=== PATIENT | male | born 1950 | race Caucasian/White ===

== ENCOUNTER → 2016-06-24 | Outpatient (CLI) | payer OTHER ==
[~2016-06-24] MED LIST: ACET-1311 PO; ASPI81TA28 PO; FINA5TAB PO; HYDR-3419 PO; METO50TA16 PO; POTATAB2 PO; PRLSR20 PO; ROSU20TA PO; TAMS0.4C59 PO; WARF5TAB90 PO
--- NOTE | 2016-06-24 14:11 | DIAGNOSTIC IMAGING REPORT ---
IV PYELOGRAM CLINICAL HISTORY: Benign prostatic hypertrophy with urinary obstruction. COMPARISON STUDY: KUB dated 08/28/2015. Abdominal CT dated 12/11/2014. TECHNIQUE: An abdominal heat treat puller radiograph is performed. IVP pyelogram was then performed following the IV administration of Optiray 300, tomographic images are acquired in the corticomedullary and excretory phases of enhancement. Overhead views of the renal collecting system and bladder were obtained in multiple obliquities both pre and post void. FINDINGS: Abdominal heat treat puller radiograph shows a nonobstructed abdominal bowel gas pattern. There is a left aortic stent graft. Cholecystectomy clips are noted. The reservoir from a penile prosthesis is noted in the left pelvis. There is a 5 mm nonobstructing left renal calculus. No calculi are seen in the right kidney or projecting on the course of the ureters. Pelvic floor motion noted. The skeletal structures are osteopenic. Lumbosacral spondylosis is observed. Following contrast ministration there is symmetric renal cortical enhancement and contrast excretion. No hydronephrosis is seen. There is no evidence of hypervascular renal mass. No filling defects identified within the renal pelvis bilaterally or along the course of the ureters. There is a large indentation along the inferior margin of the bladder, likely corresponding to the markedly enlarged prostate gland seen by CT. The bladder is not well distended during the examination. There is a small post void residual. IMPRESSION: 1. Nonobstructing left renal calculus is noted on the heat treat puller view. 2. The kidneys enhance and excrete symmetrically. There is no hydronephrosis. 3. There is no evidence of urothelial lesion within the renal pelvis bilaterally or along the course of the ureters. 4. The bladder is not well distended. Marked prostatomegaly is noted. 5. There is a post void bladder residual. Electronically signed by: Tristan Valdivia M.D. 06/24/2016 2:10 PM Dictated Date/Time: 06/24/2016 2:06 PM
[2016-06-24 14:30] LABS: BLOOD UREA NITROGEN 18 mg/dl (7-18)
== END | disposition home or self-care (01) ==
LOC: C.RAD 12:33
PROVIDERS: ATTEND Urology
DX: C67.9 Malignant neoplasm of bladder, unspecified (principal); N39.0 Urinary tract infection, site not specified; N40.1 Benign prostatic hyperplasia with lower urinary tract symptoms

== ENCOUNTER → 2016-07-10 | Day surgery (SDC) | payer OTHER ==
[2016-06-30 14:47] VITALS: Ht 172.7 cm; Wt 90.0 kg
--- NOTE | 2016-07-02 14:10 | DIAGNOSTIC IMAGING REPORT ---
CHEST 2 VIEWS ROUTINE CLINICAL HISTORY: N20.0 [id number] preoperative evaluation COMPARISON STUDY: 07/09/2015 FINDINGS: Prior median sternotomy and valve replacement. Lungs are clear. Slight chronic interstitial prominence left base. Diaphragms are smooth. IMPRESSION: Chronic and postoperative change. No acute process. Electronically signed by: Huan East M.D. 07/02/2016 2:09 PM Dictated Date/Time: 07/02/2016 2:08 PM
[2016-07-02 14:39] LABS: BASO % 0.2 %; BASO ABS # 0.01 K/uL (0-0.2); COMPLETE YES; EOS % 3.1 %; HEMATOCRIT 43.2 % (42-52); IG% 0.3 %; LYMPH % 25.6 %; LYMPH ABS # 1.48 K/uL (1.2-3.4); MEAN CORPUSCULAR HEMOGLOBIN 30.4 pg (25-34); MEAN CORPUSCULAR HGB CONC 33.8 g/dl (32-36); NEUT % 61.8 %; PLATELET COUNT 190 K/uL (130-400); WHITE BLOOD COUNT 5.77 K/uL (4.8-10.8)
[2016-07-02 15:09] LABS: POTASSIUM 4.6 mmol/L (3.5-5.1)
[2016-07-02 15:17] LABS: PROSTATE SPECIFIC ANTIGEN 2.17 ng/ml (0.000-4.000)
[~2016-07-10] VITALS: Ht 172.7 cm; Wt 90.0 kg
[~2016-07-10] MED LIST changes: +ATROPINE SULFATE 0.1 MG/ML 5ML SYR IV PRN; +CEFAZOLIN 2000 MG/60 ML D5W IV SCH; +EpHEDrine SULFATE INJ 50 MG/ML AMP IV PRN; +FENTANYL CITRATE INJ 50 MCG/1 ML 2 ML VIAL ONE; +LACTATED RINGER'S 1000ML 1,000 ML IV SCH; +LIDOCAINE HCL 2% 2 ML VIAL (20MG/ML) ONE; +MIDAZOLAM HCL 1 MG/ML 2ML VIAL ONE; +ONDANSETRON INJ 2 MG/ML 2 ML VIAL ONE; -POTATAB2 PO; +PROPOFOL IV EMULSION 10 MG/ML 20 ML VIAL IV ONE
--- NOTE | 2016-07-10 07:31 | DIAGNOSTIC IMAGING REPORT ---
KUB CLINICAL HISTORY: N20.0 [id number] COMPARISON STUDY: 06/24/2016 FINDINGS: A left aortoiliac stent is again visualized. There are surgical clips within the right upper quadrant. There is no pathologic bowel dilatation. There is a 6 mm left renal calculus. There is a presumed reservoir from a penile prosthesis visualized in the left hemipelvis. IMPRESSION: Left-sided nephrolithiasis. No evidence of pathologic bowel dilatation. Electronically signed by: Og Mitchell M.D. 07/10/2016 7:30 AM Dictated Date/Time: 07/10/2016 7:29 AM
[2016-07-10 09:14] LABS: INR 1.1 (0.9-1.1); PROTHROMBIN TIME (PATIENT) 11.9 SECONDS (9.0-12.0)
--- NOTE | 2016-07-10 09:23 | History & Physical Bridge - SC ---
H&P Re-Evaluation Bridge Note: I have examined the patient, reviewed the History & Physical and in the interval since the performance of the History & Physical I have noted the following changes of clinical significance: No changes noted
--- NOTE | 2016-07-10 10:01 | [facility] Post Operative Brief Note ---
Immediate Operative Summary Operative Date Jul 10, 2016. Pre-Operative Diagnosis Left renal stone Post-Operative Diagnosis same Procedure(s) Performed Left Extracorporeal Shock Wave Lithotripsy--RENAL Surgeon Dr Rasheed Patent Paralegal Surgeon(s) 0 Estimated Blood Loss 0 Findings small l lower pole stone Specimens 0 Disposition Recovery Room / PACU
--- NOTE | 2016-07-10 10:03 | Discharge Instructions-SurgCtr ---
Discharge Instructions Visit Reason for Visit: Stones;Nephrolithiasis N20.0 Discharge Discharge Diagnosis / Problem: post op l eswl Discharge Goals Goal(s): Increase independence, Improve disease control Medications Stopped Medications Name(s): Coumadin 5mg last dose 07/05 and asa 81mg patient unsure of last dose, but states that last dose was at least 2 weeks ago Activity Recommendations Activity Limitations: per Instructions/Follow-up section (no driving on narcotics) Anesthesia . Post Anesthesia Instructions: If you have had General Anesthesia or IV Sedation: * Do not drive today. * Resume driving when surgeon permits. * Do not make important decisions or sign legal documents today. * Call surgeon for: 1. Temperature elevations greater than 101 degrees F. 2. Uncontrollable pain. 3. Excessive bleeding. 4. Persistent nausea and vomiting. 5. Medication intolerance (nausea, vomiting or rash). * For nausea and vomiting use only clear liquids such as: tea, soda, bouillon until nausea subsides, then gradually increase diet as tolerated. * If you have any concerns or questions, call your surgeon's office. If physician is unavailable and it is an emergency, call 911 or go to the nearest emergency room. . Diet Recommendations Home Diet: resume previous diet Procedures Procedures Performed: Left Extracorporeal Shock Wave Lithotripsy--RENAL Medical Emergencies . Who to Call and When: Medical Emergencies: If at any time you feel your situation is an emergency, please call 911 immediately. . Non-Emergent Contact Non-Emergency issues call your: Urologist . . "Provider Documentation" section prepared by Lion Rasheed.
[2016-07-10 10:38] VITALS: TEMP 36.5
--- NOTE | 2016-07-10 11:04 | Anesthesia Progress Nt - [facility] ---
Anesthesia Post Op Note Date & Time Jul 10, 2016 at 11:05 Vital Signs Pain Intensity: 0 Vital Signs Past 12 Hours Date Time Temp Pulse Resp B/P Pulse Ox O2 Delivery O2 Flow Rate FiO2 07/10/16 10:38 36.5 92 16 128/76 93 Room Air 07/10/16 10:31 94 20 07/10/16 10:31 93 20 92 07/10/16 10:30 90 23 118/70 92 07/10/16 10:30 90 23 07/10/16 10:25 93 15 07/10/16 10:25 36.6 94 15 115/74 94 Room Air 07/10/16 10:25 94 15 115/74 94 07/10/16 10:20 95 23 114/69 96 07/10/16 10:20 94 23 07/10/16 10:15 94 15 07/10/16 10:15 94 15 95/69 97 07/10/16 10:10 96 21 07/10/16 10:10 95 21 103/67 95 07/10/16 10:05 101 97/70 98 07/10/16 10:05 36.2 99 12 97/70 97 Mask 6 07/10/16 10:05 100 07/10/16 07:59 36.8 110 16 118/71 94 Room Air Notes Mental Status: alert / awake / arousable, participated in evaluation Pt Amnestic to Procedure: Yes Nausea / Vomiting: adequately controlled Pain: adequately controlled Airway Patency, RR, SpO2: stable & adequate BP & HR: stable & adequate Hydration State: stable & adequate Anesthetic Complications: no major complications apparent
[2016-07-10 11:10] VITALS: BP 128/78; PULSE 98; O2SAT 95
--- NOTE | 2016-07-10 14:31 | OPERATIVE REPORT ---
DATE OF OPERATION: 07/10/2016 PREOPERATIVE DIAGNOSIS: Left renal stone. POSTOPERATIVE DIAGNOSIS: Same. PROCEDURE PERFORMED: Left ESWL. INDICATIONS: The patient is a 65-year-old male with previous history of stones, who presents now for ESWL of 5-mm lower pole left renal stone. The patient had been on Coumadin and we checked his protime that was normal. He said that he had been off aspirin for 7 days. He did bleed easily when his blood was drawn from the procedure, so we elected to proceed with the procedure, trying to go at the lowest possible power. DESCRIPTION OF THE PROCEDURE: The patient was taken to the operating room, where general anesthesia was administered. He was placed in supine position. The stone was localized in two views. He was given 2500 shocks, the majority at level 3, the last 500 at level 4. The patient was then transferred to the recovery room in stable condition. I attest to the content of the Intraoperative Record and any orders documented therein. Any exceptio ns are noted below.
== END | disposition home or self-care (01) ==
LOC: X.SURG 06:48
PROVIDERS: ATTEND Urology
DX: N20.0 Calculus of kidney (principal); C67.9 Malignant neoplasm of bladder, unspecified; N40.1 Benign prostatic hyperplasia with lower urinary tract symptoms; N13.8 Other obstructive and reflux uropathy; N39.0 Urinary tract infection, site not specified; I72.3 Aneurysm of iliac artery; I71.2 Thoracic aortic aneurysm, without rupture; I25.10 Atherosclerotic heart disease of native coronary artery without angina pectoris; K21.9 Gastro-esophageal reflux disease without esophagitis; H91.90 Unspecified hearing loss, unspecified ear; E78.5 Hyperlipidemia, unspecified; I47.1 Supraventricular tachycardia

== ENCOUNTER → 2016-07-28 | Outpatient (CLI) | payer OTHER ==
[~2016-07-28] MED LIST changes: -ATROPINE SULFATE 0.1 MG/ML 5ML SYR IV PRN; -CEFAZOLIN 2000 MG/60 ML D5W IV SCH; -EpHEDrine SULFATE INJ 50 MG/ML AMP IV PRN; -FENTANYL CITRATE INJ 50 MCG/1 ML 2 ML VIAL ONE; -LACTATED RINGER'S 1000ML 1,000 ML IV SCH; -LIDOCAINE HCL 2% 2 ML VIAL (20MG/ML) ONE; -MIDAZOLAM HCL 1 MG/ML 2ML VIAL ONE; -ONDANSETRON INJ 2 MG/ML 2 ML VIAL ONE; -PROPOFOL IV EMULSION 10 MG/ML 20 ML VIAL IV ONE
--- NOTE | 2016-07-28 12:52 | DIAGNOSTIC IMAGING REPORT ---
KUB CLINICAL HISTORY: N20.0 Nephrolithiasis COMPARISON STUDY: 07/10/2016 FINDINGS: There is a left iliac stent. There are surgical clips in the right upper quadrant consistent with a prior cholecystectomy. There is a 2 mm calcification projected over the left kidney consistent with a calculus. Pelvic basin calcifications likely represent phleboliths. There is a presumed reservoir from a penile prosthesis visualized in the left hemipelvis. There is no pathologic bowel dilatation. IMPRESSION: 2 mm left renal calculus. Electronically signed by: Og Mitchell M.D. 07/28/2016 12:51 PM Dictated Date/Time: 07/28/2016 12:50 PM
== END | disposition home or self-care (01) ==
LOC: C.RAD 12:18
PROVIDERS: ATTEND Urology
DX: N20.0 Calculus of kidney (principal)

== ENCOUNTER → 2016-10-02 | Outpatient (CLI) | payer OTHER ==
[2016-10-02 13:25] LABS: HEMATOCRIT 44.6 % (42-52); MEAN CELL VOLUME 89.4 fL (80-100); MEAN CORPUSCULAR HEMOGLOBIN 30.1 pg (25-34); MEAN CORPUSCULAR HGB CONC 33.6 g/dl (32-36); MEAN PLATELET VOLUME 10.8 fL (7.4-10.4); PLATELET COUNT 192 K/uL (130-400); RED BLOOD COUNT 4.99 M/uL (4.7-6.1); WHITE BLOOD COUNT 5.94 K/uL (4.8-10.8)
[2016-10-02 13:38] LABS: ALT/SGPT 35 U/L (12-78); AST/SGOT 28 U/L (15-37); BLOOD UREA NITROGEN 20 mg/dl (7-18); BUN/CREATININE RATIO 15.2 (10-20); CALCIUM 8.4 mg/dl (8.5-10.1); CARBON DIOXIDE 25 mmol/L (21-32); CHLORIDE 109 mmol/L (98-107); GLUCOSE 101 mg/dl (70-99); SODIUM 141 mmol/L (136-145)
[2016-10-02 13:42] LABS: CHOLESTEROL 200 mg/dl (0-200); CHOLESTEROL/HDL RATIO 5.3; HDL CHOLESTEROL 38 mg/dl; LDL CHOLESTEROL CALCULATED 127 mg/dl; TRIGLYCERIDES 175 mg/dl (0-150); VERY LOW DENSITY LIPOPROT CALC 35 mg/dl
== END | disposition home or self-care (01) ==
LOC: C.LABMFLN 07:45
PROVIDERS: ATTEND Internal Medicine Cardiovascular Disease
DX: I47.1 Supraventricular tachycardia (principal); E78.5 Hyperlipidemia, unspecified; Q23.1 Congenital insufficiency of aortic valve; I71.2 Thoracic aortic aneurysm, without rupture; I25.10 Atherosclerotic heart disease of native coronary artery without angina pectoris; Z79.01 Long term (current) use of anticoagulants

== ENCOUNTER → 2017-05-14 | Outpatient (CLI) | payer OTHER ==
[~2017-05-14] MED LIST changes: -HYDR-3419 PO
[2017-05-14 12:41] LABS: HEMATOCRIT 45.2 % (42-52); HEMOGLOBIN 15.2 g/dL (14.0-18.0); MEAN CELL VOLUME 91.3 fL (80-100); MEAN CORPUSCULAR HEMOGLOBIN 30.7 pg (25-34); MEAN CORPUSCULAR HGB CONC 33.6 g/dl (32-36); PLATELET COUNT 176 K/uL (130-400); RED CELL DISTRIBUTION WIDTH CV 13.6 % (11.5-14.5); WHITE BLOOD COUNT 5.29 K/uL (4.8-10.8)
[2017-05-14 13:07] LABS: ALT/SGPT 37 U/L (12-78); AST/SGOT 26 U/L (15-37); BLOOD UREA NITROGEN 13 mg/dl (7-18); CALCIUM 8.7 mg/dl (8.5-10.1); CARBON DIOXIDE 24 mmol/L (21-32); CREATININE 1.17 mg/dl (0.60-1.40); GLUCOSE 103 mg/dl (70-99); POTASSIUM 4.2 mmol/L (3.5-5.1); SODIUM 136 mmol/L (136-145)
== END | disposition home or self-care (01) ==
LOC: C.LABMFLN 07:27
PROVIDERS: ATTEND Internal Medicine Cardiovascular Disease
DX: N40.1 Benign prostatic hyperplasia with lower urinary tract symptoms (principal); C67.9 Malignant neoplasm of bladder, unspecified; N39.0 Urinary tract infection, site not specified; N20.0 Calculus of kidney; I47.1 Supraventricular tachycardia; E78.5 Hyperlipidemia, unspecified; I25.10 Atherosclerotic heart disease of native coronary artery without angina pectoris; R42 Dizziness and giddiness; Q23.1 Congenital insufficiency of aortic valve; Z79.01 Long term (current) use of anticoagulants; Z95.2 Presence of prosthetic heart valve

== ENCOUNTER → 2017-09-15 | Outpatient (CLI) | payer OTHER | END | disposition home or self-care (01) | LOC: C.LABMFLN 09:35 | PROVIDERS: ATTEND Urology | DX: N40.1 Benign prostatic hyperplasia with lower urinary tract symptoms (principal) ==

== ENCOUNTER → 2017-09-22 | Outpatient (CLI) | payer OTHER ==
--- NOTE | 2017-09-22 13:34 | DIAGNOSTIC IMAGING REPORT ---
KUB HISTORY: N20.0 [id number] COMPARISON: KUB 07/28/2016, CT urogram 04/26/2014. FINDINGS: The bowel gas pattern is non-obstructive. There is no organomegaly. Unchanged 2 mm calculus of the interpolar left kidney. No ureteral calculi identified. Phleboliths of the pelvis are noted. Surgical sutures overlie the midline of the lower abdomen. Left iliac stent in place. Device about the hemipelvis redemonstrated which suggests a reservoir from penile implant. Cholecystectomy clips noted. No pneumoperitoneum or pneumatosis. No fracture. IMPRESSION: Unchanged 2 mm calculus of the interpolar left kidney. Electronically signed by: Genaro Echols M.D. 09/22/2017 1:33 PM Dictated Date/Time: 09/22/2017 1:26 PM
== END | disposition home or self-care (01) ==
LOC: C.RAD 12:44
PROVIDERS: ATTEND Urology
DX: N40.1 Benign prostatic hyperplasia with lower urinary tract symptoms (principal); N20.0 Calculus of kidney

== ENCOUNTER → 2017-12-01 | Outpatient (CLI) | payer OTHER ==
[2017-12-01 13:09] LABS: HEMOGLOBIN 14.9 g/dL (14.0-18.0); MEAN CELL VOLUME 91.1 fL (80-100); MEAN CORPUSCULAR HEMOGLOBIN 30.2 pg (25-34); MEAN CORPUSCULAR HGB CONC 33.1 g/dl (32-36); MEAN PLATELET VOLUME 10.9 fL (7.4-10.4); PLATELET COUNT 180 K/uL (130-400); RED CELL DISTRIBUTION WIDTH CV 13.9 % (11.5-14.5); RED CELL DISTRIBUTION WIDTH SD 45.9 fL (36.4-46.3)
[2017-12-01 14:06] LABS: ALBUMIN 3.7 gm/dl (3.4-5.0); ALKALINE PHOSPHATASE 48 U/L (45-117); ALT/SGPT 51 U/L (12-78); AST/SGOT 27 U/L (15-37); BLOOD UREA NITROGEN 14 mg/dl (7-18); CALCIUM 8.4 mg/dl (8.5-10.1); CARBON DIOXIDE 24 mmol/L (21-32); CHOLESTEROL 130 mg/dl (0-200); GLUCOSE 114 mg/dl (70-99); LDL CHOLESTEROL CALCULATED 52 mg/dl; POTASSIUM 4.1 mmol/L (3.5-5.1); SODIUM 136 mmol/L (136-145)
== END | disposition home or self-care (01) ==
LOC: C.LABMFLN 07:01
PROVIDERS: ATTEND Physician Assistant
DX: I25.10 Atherosclerotic heart disease of native coronary artery without angina pectoris (principal); E78.5 Hyperlipidemia, unspecified; Z79.01 Long term (current) use of anticoagulants

== ENCOUNTER 2020-01-27 18:18 | Inpatient (IN) ==
--- NOTE | 2020-01-27 22:09 | History & Physical Report ---
Date of Service January 27, 2020 Assessment & Plan (1) Hematuria: 69-year-old male with past medical history of hyperlipidemia, coronary artery disease, mechanical AVR on warfarin, Dementia, transurethral resection of the prostate and resection of bladder tumor on January 01, 2020 presents as a direct admission from [place] for concerns of hematuria. Hematuria -Hemodynamically stable at OSH. Repeat CBC pending -Likely secondary to urothelial friability in setting of recent TURP and resection of bladder tumor procedure 01/01/[address] Machado -Holding Warfarin and ASA -Last seen in Urology office 01/09/20 where catheter was removed. Plan was for another cystoscopy in 4 to 6 weeks and likely BCG therapy with CT Abd/Pelvis in 1-2 weeks -Bladder ultrasound at OSH showed blood clots within the bladder -CBI will be placed here -Appreciate Urology consult Dysuria -UA pending -Will start IV Rocephin BPH -Continue finasteride 5 mg, alfuzosin 10 mg CAD/HLD -Continue metoprolol succinate ER 50 mg daily, Crestor 40 mg daily Dementia -Continue donezepil 10 mg, memantine 10 mg BID FEN/GI: HH Diet DVT Propylaxis: Chemoprophylaxis deferred. SCDs Full Code Dispo: Med Surg Admission and Anticipated Discharge Date Admission Date: January 27, 2020 History of Present Illness Chief Complaint: Hematuria Primary Care Provider: Raine Garcia PA-C 69-year-old male with past medical history of hyperlipidemia, coronary artery disease, mechanical AVR on warfarin, Dementia, transurethral resection of the prostate and resection of bladder tumor on January 01, 2020 presents as a direct admission from [place] for concerns of hematuria. Patient notes that worsening hematuria started this past Wednesday. Initially patient has a clot 'here and there' and usually self resolves. Patient is on Coumadin as noted above. Patient additionally notes that he has had dysuria that started 1 week ago. Per patient, his urologist at [facility] prescribed 1 tablet of antifungal but no other antibiotics (Cx from 01/17/20 grew Linda Albicans). Patient otherwise denies any fevers, chills, sweats, urinary urgency/frequency/hesitancy, other urethral discharge, abdominal pain, chest pain, shortness of breath, known sick contacts or recent travel anywhere. Patient with no other acute concerns or complaints. No pelvic injury. OSH labs: Largely unremarkable CMP and CBC. At OSH, Patient given IV Rocephin and NSS 1 L. [facility] urology was consulted who recommended bladder ultrasound, which showed blood clots within the bladder. Further recommended placing a three-way urinary catheter with continuous bladder irrigation. Social history: Former smoker, quit 1995, 0.5 packs/day with 20-year pack history. Quit smokeless tobacco use (snuff) 4 years ago. Alcohol: Social. No other illicit drug use. Allergies Allergy/AdvReac Type Severity Reaction Status Date / Time adhesive Allergy Mild RED SKIN Verified 01/09/20 09:03 ciprofloxacin Allergy Mild RASH Verified 01/09/20 09:03 doxycycline Allergy Mild GI UPSET Verified 01/09/20 09:03 Home Medications Home Medications Medication Instructions Recorded Confirmed Type cyanocobalamin (vitamin B-12) 1,000 mcg PO DAILY #90 tab 10/12/18 01/09/20 Rx 1,000 mcg tablet warfarin 5 mg tablet 5 mg PO DAILY #90 tab 08/15/19 01/09/20 Rx finasteride 5 mg tablet 5 mg PO DAILY #90 tab 10/25/19 01/09/20 Rx omeprazole 20 mg tablet,delayed 20 mg PO DAILY #90 tab 11/09/19 01/09/20 Rx release aspirin 81 mg PO QPM 12/21/19 01/09/20 History metoprolol succinate 50 mg 25 mg PO DAILY #90 tab 12/22/19 01/09/20 Rx tablet,extended release 24 hr sertraline 25 mg tablet 25 mg PO DAILY #30 tab 12/25/19 01/09/20 Rx alfuzosin [Uroxatral] 10 mg PO QPM 01/01/20 01/09/20 History memantine [Namenda] 10 mg PO BID 01/01/20 01/09/20 History oxycodone-acetaminophen [Percocet] 1 tab PO Q8H PRN #7 tab 01/01/20 01/09/20 Rx rosuvastatin [Crestor] 40 mg PO DAILY 01/01/20 01/09/20 History donepezil 10 mg tablet 10 mg PO DAILY #90 tab 01/09/20 Rx fluconazole 150 mg tablet 150 mg PO ONCE 1 Days #1 tab 01/22/20 Rx Past Med/Surg History Medical History (Updated 01/28/20 @ 13:38 by JASWANT Amaya) 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 MONITORED YEARLY. Aneurysm of thoracic aorta MONITORED YEARLY WITH DR. MOORE Anticoagulant long-term use Arthritis Benign localized hyperplasia of prostate with urinary obstruction Bicuspid aortic valve S/P MECHANICAL AVR 2012. ON COUMADIN. CAD (coronary artery disease) NON-OBSTRUCTIVE Cancer BLADDER CANCER (S/P TB FLUSH TREATMENT) Dementia WITH ASSC. BEHAVIORAL/MOOD CHANGES. FOLLOWING WITH DR REYES [facility] First degree atrioventricular block GERD (gastroesophageal reflux disease) CONTROLLED Hearing deficit Hiatal hernia History of supraventricular tachycardia ASYMPTOMATIC S/P ABLATION (2008) PER CARDIO Hyperlipidemia Hypertension Kidney stones Malignant neoplasm of urinary bladder Mobitz type I Wenckebach atrioventricular block TRANSIENT. Obesity Osteoarthritis Poor historian Supraventricular tachycardia AVNRT, S/P ABLATION, ASYMPTOMATIC. Vitamin B12 deficiency Surgical History (Updated 01/28/20 @ 13:53 by JASWANT Amaya) Fusion of spine LUMBAR FUSION AND DISCECTOMY History of anesthesia reaction CONFUSED/AGITATED AND SLOW TO WAKE UP History of arthroscopy LEFT KNEE History of cardiac cath 2013 History of carpal tunnel release LEFT History of cataract surgery B/L History of cholecystectomy History of colonoscopy History of cystoscopy + KIDNEY STONE EXTRACTION History of esophagogastroduodenoscopy (EGD) History of heart valve replacement AVR (2012) History of herniorrhaphy History of tooth extraction History of vascular surgery S/P LEFT COMMON ILIAC ARTERY ANEURYSM REPAIR Hx of elbow surgery ELBOW SURGERY (ULNAR NERVE) Hx of shoulder surgery LEFT X 2 RT X 1 Hx of transurethral resection of prostate Family History Brother Alcohol abuse Heart disease Crohn's disease Myocardial infarction Sister Anxiety Heart disease Crohn's disease Depression Kidney disease Myocardial infarction Mother Heart disease Myocardial infarction Other Coronary heart disease Denies family history of Ovarian cancer Prostate cancer Breast cancer Colorectal cancer Social History Smoking Status: Never smoker Cigarettes Per Day: QUIT IN 2001; <1 X 20 YEARS; Second Hand Exposure: No; Do You Dip or Chew Tobacco: No; Hx Alcohol Use: Yes Alcohol type: beer Hx Substance Use: No Preferred Language: Ukrainian Communication Ability: Effective Visual Impairment: No Limitations Special Education Case Manager Required: No Beliefs That Will Affect Care: None Current Living Situation: Spouse Other Information That Helps Us Care for You: No Feels Safe at Home: Yes Safety Concerns: Feels Safe At This Time Review of Systems Review of Systems: All systems reviewed & are unremarkable except as noted in HPI & below Physical Exam Constitutional: WD/WN, vitals as above Eyes: PERRL, conjunctivae normal, anicteric sclerae ENMT: external ear and nose normal, oropharynx normal Respiratory: normal respiratory effort, lungs clear to auscultation Cardiovascular: Rate/Rhythm: regular rate and regular rhythm Heart Sounds: + click (h/o AVR) Gastrointestinal (Abdomen): normal bowel sounds, soft, nontender, no hepatosplenomegaly Skin: no rashes, warm and dry Psychiatric: A+Ox3, euthymic affect Genitourinary: Chan in place draining dark red urine Results & Data Results & Data ([facility]) Vital Signs (Past 12 Hours) Vital Signs Temp Pulse Resp BP Pulse Ox 01/27/20 20:30 36.4 C L 52 L 18 142/72 H 97 Code Status & VTE Plan Code Status Full Supervising Physician Co-Signing Physician Notes Attending addendum: I have physically seen this patient, have supervised the medical residents activities, and agree with the H&P unless as otherwise noted. Assessment and Plan: Gross hematuria/status post TURP and bladder tumor resection on 01/01/2020- Hold warfarin and aspirin. Continue CBI Ceftriaxone 1 g IV daily Continue finasteride and alfuzosin Consult urology Dr. Machado CAD/hypertension- Continue Metoprolol succinate ER 50 mg daily Hyperlipidemia- Continue Crestor 40 mg daily. Remainder orders and notations as noted Resident Activity Tracking Resident Involvement: Resident Care Provided Care Provided: Adult Hospital Medicine
[2020-01-27] MEDS ORDERED: ACETAMINOPHEN 325 MG TAB PO PRN (23:02)
[2020-01-27] MEDS ORDERED: ALUMINUM/MAGNESIUM SUSP 30 ML UDC PO PRN (23:02)
[2020-01-27] MEDS ORDERED: ONDANSETRON INJ 2 MG/ML 2 ML VIAL IV PRN (23:02)
[2020-01-27] MEDS: cefTRIAXone SODIUM 2,000 MG in DEXTROSE 5% 50 ML IV SCH (23:57)
[2020-01-28] LABS: Basophils # (auto) 0.01 K/uL (0-0.2); Basophils % (auto) 0.1 %; Eosinophils # (auto) 0.32 K/uL (0-0.5); Eosinophils % (auto) 3.9 %; Hematocrit (blood only) 39.8 % (42-52); Hemoglobin 13.1 g/dL (14.0-18.0); Immature Granulocytes # (auto) 0.01 K/uL (0.00-0.02); Immature Granulocytes % (auto) 0.1 %; Lymphocytes # (auto) 1.54 K/uL (1.2-3.4); Lymphocytes % (auto) 18.6 %; Mean Corpuscular Hemoglobin 30.3 pg (25-34); Mean Corpuscular Hgb Conc 32.9 g/dL (32-36); Mean Corpuscular Volume 91.9 fL (80-100); Mean Platelet Volume 10.7 fL (7.4-10.4); Monocytes # (auto) 0.52 K/uL (0.11-0.59); Monocytes % (auto) 6.3 %; Neutrophils # (auto) 5.87 K/uL (1.4-6.5); Platelet Count 186 K/uL (130-400); RDW Coefficient of Variation 14.1 % (11.5-14.5); RDW Standard Deviation 47.8 fL (36.4-46.3); Red Blood Count 4.33 M/uL (4.7-6.1); White Blood Count 8.27 K/uL (4.8-10.8)
[2020-01-28 00:14] LABS: INR 2.7 (0.9-1.1); Prothrombin Time 27.2 Seconds (9.0-12.0)
[2020-01-28 00:16] LABS: BUN Creatinine Ratio 13.2 (10-20); Calcium 8.6 mg/dl (8.5-10.1); Creatinine Clr Calc Pharmacy 64.6 ml/min; Est GFR (African American) 73.3; Est GFR (Non-African American) 63.2; Potassium 4.3 mmol/L (3.5-5.1)
[2020-01-28] MEDS: MELATONIN 3 MG TAB PO PRN (01:02)
[2020-01-28 05:48] LABS: Basophils % (auto) 0.1 %; Eosinophils % (auto) 5.9 %; Hematocrit (blood only) 38.5 % (42-52); Hemoglobin 12.8 g/dL (14.0-18.0); Immature Granulocytes % (auto) 0.1 %; Lymphocytes % (auto) 18.6 %; Mean Corpuscular Hemoglobin 30.4 pg (25-34); Mean Corpuscular Hgb Conc 33.2 g/dL (32-36); Mean Corpuscular Volume 91.4 fL (80-100); Mean Platelet Volume 11.1 fL (7.4-10.4); Monocytes % (auto) 9.6 %; Neutrophils % (auto) 65.7 %; Platelet Count 175 K/uL (130-400); RDW Coefficient of Variation 14.2 % (11.5-14.5); RDW Standard Deviation 47.8 fL (36.4-46.3); Red Blood Count 4.21 M/uL (4.7-6.1); White Blood Count 7.08 K/uL (4.8-10.8)
[2020-01-28 05:49] LABS: Basophils # (auto) 0.01 K/uL (0-0.2); Eosinophils # (auto) 0.42 K/uL (0-0.5); Immature Granulocytes # (auto) 0.01 K/uL (0.00-0.02); Lymphocytes # (auto) 1.32 K/uL (1.2-3.4); Monocytes # (auto) 0.68 K/uL (0.11-0.59); Neutrophils # (auto) 4.64 K/uL (1.4-6.5)
[2020-01-28 05:57] LABS: INR 2.5 (0.9-1.1); Prothrombin Time 25.3 Seconds (9.0-12.0)
[2020-01-28 06:12] LABS: BUN Creatinine Ratio 16.1 (10-20); Calcium 8.2 mg/dl (8.5-10.1); Creatinine Clr Calc Pharmacy 77.1 ml/min; Est GFR (African American) 90.8; Est GFR (Non-African American) 78.4
[2020-01-28] MEDS: SERTRALINE HCL 50 MG TABLET PO SCH (08:49)
[2020-01-28] MEDS: CYANOCOBALAMIN 500 MCG TABLET (VITAMIN B-12) PO SCH (08:49)
[2020-01-28] MEDS: ROSUVASTATIN CALCIUM 20 MG TAB PO SCH (08:50)
[2020-01-28] MEDS: DONEPEZIL HCL 10 MG TAB PO SCH (08:50)
[2020-01-28] MEDS: FINASTERIDE 5 MG TAB PO SCH (08:50)
[2020-01-28] MEDS: PANTOprazole 40 MG TAB PO SCH (08:50)
[2020-01-28] MEDS: MEMANTINE HCL 10 MG TAB PO SCH ×2 (08:50→20:16)
[2020-01-28] MEDS ORDERED: METOPROLOL SUCC 50MG EXT REL TAB PO SCH (09:00)
--- NOTE | 2020-01-28 11:34 | Urology Consultation ---
Date of Consultation Patient with a January 28, 2020 Assessment & Plan (1) Hematuria: continue cbi at this time -- it's almost off. hopefully this will continue to clear on its own and he can avoid a surgery for cauterization his labs are WNL and he is clinically stable Present on Admission?: Yes (2) S/P TURP (status post transurethral resection of prostate): continue catheter at time time Present on Admission?: Yes (3) Malignant neoplasm of urinary bladder: f/u with primary urologist post dc for managment. Present on Admission?: Yes History of Present Illness Reason for Consultation: Patient transferred from [facility] for gross hematuria. He underwent TURBT and TURP on 12/31. Per the notes, there have mention of possible BCG in the future. He reports that he did well until his ca theter came out. Since then he has had pain and bleeding at times. At one point he was treated for a UTI. He presented yesterday to the [place] [facility]. A 3-way catheter was inserted and he was transferred here when the urine didn't clear. He has been doing well since admission. He denies pain or leakage around the catheter. No CP, SOB, or FC. He denies nausea or vomiting. Attending Physician: Odilon Kunz DO Allergies Allergy/AdvReac Type Severity Reaction Status Date / Time adhesive Allergy Mild RED SKIN Verified 01/09/20 09:03 ciprofloxacin Allergy Mild RASH Verified 01/09/20 09:03 doxycycline Allergy Mild GI UPSET Verified 01/09/20 09:03 Home Medications Home Medications Medication Instructions Recorded Confirmed Type cyanocobalamin (vitamin B-12) 1,000 mcg PO DAILY #90 tab 10/12/18 01/09/20 Rx 1,000 mcg tablet warfarin 5 mg tablet 5 mg PO DAILY #90 tab 08/15/19 01/09/20 Rx finasteride 5 mg tablet 5 mg PO DAILY #90 tab 10/25/19 01/09/20 Rx omeprazole 20 mg tablet,delayed 20 mg PO DAILY #90 tab 11/09/19 01/09/20 Rx release aspirin 81 mg PO QPM 12/21/19 01/09/20 History metoprolol succinate 50 mg 25 mg PO DAILY #90 tab 12/22/19 01/09/20 Rx tablet,extended release 24 hr sertraline 25 mg tablet 25 mg PO DAILY #30 tab 12/25/19 01/09/20 Rx alfuzosin [Uroxatral] 10 mg PO QPM 01/01/20 01/09/20 History memantine [Namenda] 10 mg PO BID 01/01/20 01/09/20 History oxycodone-acetaminophen [Percocet] 1 tab PO Q8H PRN #7 tab 01/01/20 01/09/20 Rx rosuvastatin [Crestor] 40 mg PO DAILY 01/01/20 01/09/20 History donepezil 10 mg tablet 10 mg PO DAILY #90 tab 01/09/20 Rx fluconazole 150 mg tablet 150 mg PO ONCE 1 Days #1 tab 01/22/20 Rx Patient History Medical History (Updated 01/27/20 @ 22:44 by Jacek Thomas DO) 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 MONITORED YEARLY. Aneurysm of thoracic aorta MONITORED YEARLY WITH DR. MOORE Anticoagulant long-term use Arthritis Benign localized hyperplasia of prostate with urinary obstruction Bicuspid aortic valve S/P MECHANICAL AVR 2012. ON COUMADIN. CAD (coronary artery disease) NON-OBSTRUCTIVE Cancer BLADDER CANCER (S/P TB FLUSH TREATMENT) Dementia WITH ASSC. BEHAVIORAL/MOOD CHANGES. FOLLOWING WITH DR REYES, [facility] [place] [facility] First degree atrioventricular block GERD (gastroesophageal reflux disease) CONTROLLED Hearing deficit Hiatal hernia History of supraventricular tachycardia ASYMPTOMATIC S/P ABLATION (2008) PER CARDIO Hyperlipidemia Hypertension Kidney stones Malignant neoplasm of urinary bladder Mobitz type I Wenckebach atrioventricular block TRANSIENT. Obesity Osteoarthritis Poor historian Supraventricular tachycardia AVNRT, S/P ABLATION, ASYMPTOMATIC. Vitamin B12 deficiency Surgical History (Updated 01/09/20 @ 09:45 by Emerita Ortiz RN) Fusion of spine LUMBAR FUSION AND DISCECTOMY History of anesthesia reaction CONFUSED/AGITATED AND SLOW TO WAKE UP History of arthroscopy LEFT KNEE History of cardiac cath 2012 History of carpal tunnel release LEFT History of cataract surgery B/L History of cholecystectomy History of colonoscopy History of cystoscopy + KIDNEY STONE EXTRACTION History of esophagogastroduodenoscopy (EGD) History of heart valve replacement AVR (2012) History of herniorrhaphy History of tooth extraction History of vascular surgery S/P LEFT COMMON ILIAC ARTERY ANEURYSM REPAIR Hx of elbow surgery ELBOW SURGERY (ULNAR NERVE) Hx of shoulder surgery LEFT X 2 RT X 1 Hx of transurethral resection of prostate Family History Brother Alcohol abuse Heart disease Crohn's disease Myocardial infarction Sister Anxiety Heart disease Crohn's disease Depression Kidney disease Myocardial infarction Mother Heart disease Myocardial infarction Other Coronary heart disease Denies family history of Ovarian cancer Prostate cancer Breast cancer Colorectal cancer Social History Smoking Status: Never smoker Cigarettes Per Day: QUIT IN 2001; <1 X 20 YEARS; Second Hand Exposure: No; Do You Dip or Chew Tobacco: No; Hx Alcohol Use: Yes Alcohol type: beer Hx Substance Use: No Preferred Language: Luxembourger Communication Ability: Effective Visual Impairment: No Limitations Airplane Pilot Crop Dusting Required: No Beliefs That Will Affect Care: None Current Living Situation: Spouse Other Information That Helps Us Care for You: No Feels Safe at Home: Yes Safety Concerns: Feels Safe At This Time Review of Systems Review of Systems: All systems reviewed & are unremarkable except as noted in HPI & below Physical Exam Physical Exam: avss aox3 nonlabored breathing soft nt nd abdomen pizano in place - currently clear irrigation on a very slow drip. ext without edema normal affect Results & Data ([facility]) Vital Signs (Past 12 Hours) Vital Signs Temp Pulse Resp BP Pulse Ox 01/28/20 07:28 36.6 C 69 16 123/67 95 PG Care Time/CCT Total # of Minutes Spent Total Time Spent with Patient: Total time spent is greater than 50% in coordination of care (as documented) at patient's floor/unit and/or counseling patient: Coding [place] [address] Initial Inpt Care Lvl 3 Patient Type Established History Expanded Problem Focused Exam Comprehensive Medical Decision Making Moderate Complexity Diagnoses Hematuria R31.9 S/P TURP (status post transurethral resection of prostate) Z90.79 Malignant neoplasm of urinary bladder C67.9 Time Spent (min) 20
--- NOTE | 2020-01-28 13:27 | Hospitalist Progress Note ---
Date of Service January 28, 2020 Assessment & Plan (1) Hematuria: Recent TURP and resection of bladder tumor 12/[address] Machado Last seen in Urology office 01/09/20 where catheter was removed. Plan was for another cystoscopy in 4 to 6 weeks and likely BCG therapy with CT Abd/Pelvis in 1-2 weeks Hold warfarin and ASA for now Urology consulted - continue cbi . (2) S/P TURP (status post transurethral resection of prostate): continue catheter per urology (3) Malignant neoplasm of urinary bladder: f/u with primary urologist post dc for managment. (4) Dysuria: Continue Rocephin, no U/a collected unfortunately before Rocephin started Urine 01/16 grew sharri. (5) CAD in [place] artery: Continue metoprolol succinate ER 50 mg daily, Crestor 40 mg daily (6) Dementia: Continue donezepil 10 mg, memantine 10 mg BID (7) Mechanical heart valve present: Aortic valve replaced for bicuspid valve - hold warfarin for now INR 2.5 Admission and Anticipated Discharge Date Admission Date: January 27, 2020 Subjective Mr. Starr has no complaints. Chan catheter with pink tinged urine ROS Constitutional: no chills, aches, sweats or fever Respiratory: no sob,cough, sputum, or wheezing Cardiac: no chest pain, palpitations, edema, orthopnea or lightheadedness GI: no abdominal pain, nausea, vomiting, diarrhea or constipation : no dysuria or hesitancy Extremities: no joint pain or weakness Skin: no rash All other systems reviewed and negative Physical Exam Physical Exam: General: no distress Eyes: normal inspection, PERLL Respiratory: chest non tender, clear to auscultation, normal breath sounds, no respiratory distress, no accessory muscle use Cardiac: regular rate and rhythm, no rub or gallop, no murmur, no edema, no jvd GI/: active bowel sounds, no abd pain or tenderness, soft, non distended Extremities: normal range of motion, normal strength, non tender Neuro/Psych: alert and oriented x 3, normal mood and affect Skin: normal color, dry Results & Data Results & Data ([facility]) Vital Signs (Past 12 Hours) Vital Signs Temp Pulse Resp BP Pulse Ox 01/28/20 07:28 36.6 C 69 16 123/67 95 PG Care Time/CCT Total # of Minutes Spent Total Time Spent with Patient: Total time spent is greater than 50% in coordination of care (as documented) at patient's floor/unit and/or counseling patient: Coding Level of Care Code 62602 Subseq Hosp Care Lvl 3 Diagnoses Hematuria R31.9 S/P TURP (status post transurethral resection of prostate) Z90.79 Malignant neoplasm of urinary bladder C67.9 Dysuria R30.0 CAD in [place] artery I25.10 Dementia F03.90 Mechanical heart valve present Z95.2
[2020-01-28] MEDS: OXYBUTYNIN CHLORIDE 5 MG TAB PO PRN ×2 (15:36→20:16)
[2020-01-28] MEDS ORDERED: WARFARIN SOD 5 MG TAB PO SCH (16:00)
[2020-01-28] MEDS: ALFUZOSIN HCL 10 MG TAB PO SCH (20:17)
[2020-01-28] MEDS: cefTRIAXone SODIUM 2,000 MG in DEXTROSE 5% 50 ML IV SCH (23:13)
--- NOTE | 2020-01-29 05:09 | Billing Data ---
Date of Service January 29, 2020 Coding Level of Care Code 44972 Initial Inpt Care Lvl 3
[2020-01-29 05:40] LABS: Hematocrit (blood only) 40.8 % (42-52); Hemoglobin 13.7 g/dL (14.0-18.0); Mean Corpuscular Hemoglobin 30.6 pg (25-34); Mean Corpuscular Hgb Conc 33.6 g/dL (32-36); Mean Corpuscular Volume 91.3 fL (80-100); Mean Platelet Volume 10.6 fL (7.4-10.4); Platelet Count 188 K/uL (130-400); RDW Coefficient of Variation 13.8 % (11.5-14.5); Red Blood Count 4.47 M/uL (4.7-6.1); White Blood Count 7.38 K/uL (4.8-10.8)
[2020-01-29 05:45] LABS: INR 1.5 (0.9-1.1); Prothrombin Time 15.6 Seconds (9.0-12.0)
[2020-01-29 06:15] LABS: BUN Creatinine Ratio 12.2 (10-20); Calcium 8.5 mg/dl (8.5-10.1); Creatinine Clr Calc Pharmacy 73.4 ml/min; Est GFR (African American) 85.5; Est GFR (Non-African American) 73.8; Potassium 4.2 mmol/L (3.5-5.1)
--- NOTE | 2020-01-29 09:45 | Hospitalist Progress Note ---
Date of Service January 29, 2020 Assessment & Plan (1) Hematuria: * Recent TURP and resection of bladder tumor 12/[address] Machado * Last seen in Urology office 01/09/20 where catheter was removed. Plan was for another cystoscopy in 4 to 6 weeks and likely BCG therapy with CT Abd/Pelvis in 1-2 weeks * Hold warfarin and ASA for now --> resuming warfarin in AM as INR 1.5 and patient with AVR * Urology consulted -- CBI discontinued at this time * Continue to monitor -- CBC, INR in AM * Changed to full admission (2) Hypertension: * Chronic. 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 Ferrari. ASA on hold as above -- resume when able (5) Anxiety: * with depression/dementia * Continue home sertraline, Namenda (6) Depression: * as above (7) Dementia: * continue Namenda (8) Hyperlipidemia: * Crestor (9) DVT prophylaxis: * Coumadin resumed as above, INR in AM Dispo: likely d/c in AM Admission and Anticipated Discharge Date Admission Date: January 27, 2020 Subjective Patient evaluated this morning and afternoon. Initially irritated this morning and stated he had been waiting over five hours for an xray. Discussed that no xray was ordered. CBI still occurring up until around 3pm this afternoon. Pizano with clear/light yellow drainage. Decreased burning noted. Plans for discharge in am with or without pizano and follow up with Urology. Eating/drinking without difficulty. Moved his bowels this morning. Denies fever, chill, chest pain, shortness of breath, abdominal pain, nausea, vomiting, constipation at this time. This evening, patient agreeable to stay as we will be resuming his coumadin and to monitor for any further bleeding. 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 Review of Systems Review of Systems: All systems reviewed & are unremarkable except as noted in HPI & below Physical Exam Constitutional: WD/WN, vitals as above Eyes: PERRL, conjunctivae normal, anicteric sclerae ENMT: external ear and nose normal, oropharynx normal Respiratory: normal respiratory effort, lungs clear to auscultation Cardiovascular: Rate/Rhythm: regular rate and regular rhythm Heart Sounds: + click (h/o AVR) Vessels: no JVD Extremities: no calf tenderness and no edema Gastrointestinal (Abdomen): normal bowel sounds, soft, nontender, no hepatosplenomegaly Musculoskeletal: no cyanosis or clubbing, extremities motor strength 5/5 Skin: no rashes, warm and dry Psychiatric: Orientation: alert and oriented x 3 Genitourinary: Pizano in place draining clear/light yellow urine Results & Data Results & Data ([facility]) Vital Signs (Past 12 Hours) Vital Signs Temp Pulse Resp BP Pulse Ox 01/29/20 07:07 36.7 C 83 16 100/66 93 01/28/20 23:31 36.6 C 68 19 111/52 L 91 Laboratory Results 01/29/20 01/29/20 01/29/20 Range/Units 05:21 05:21 05:21 WBC 7.38 (4.8-10.8) K/uL RBC 4.47 L (4.7-6.1) M/uL Hgb 13.7 L (14.0-18.0) g/dL Hct 40.8 L (42-52) % MCV 91.3 (80-100) fL MCH 30.6 (25-34) pg MCHC 33.6 (32-36) g/dL RDW Std Deviation 46.0 (36.4-46.3) fL RDW Coeff of David 13.8 (11.5-14.5) % Plt Count 188 (130-400) K/uL MPV 10.6 H (7.4-10.4) fL PT 15.6 H (9.0-12.0) Seconds INR 1.5 H (0.9-1.1) Sodium 140 (136-145) mmol/L Potassium 4.2 (3.5-5.1) mmol/L Chloride 106 (98-107) mmol/L Carbon Dioxide 26 (21-32) mmol/L Anion Gap 8.0 (3-11) BUN 13 (7-18) mg/dl Creatinine 1.03 (0.6-1.4) mg/dl Est Cr Clr Drug Dosing 73.4 ml/min Est GFR ( Amer) 85.5 Est GFR (Non-Af Amer) 73.8 BUN/Creatinine Ratio 12.2 (10-20) Glucose 109 H (70-99) mg/dl Calcium 8.5 (8.5-10.1) mg/dl PG Care Time/CCT Total # of Minutes Spent Total Time Spent with Patient: Total time spent is greater than 50% in coordination of care (as documented) at patient's floor/unit and/or counseling patient: Coding Level of Care Code 26602 Subseq Hosp Care Lvl 2 Diagnoses Hematuria R31.9 Hypertension I10 Bicuspid aortic valve Q23.1 Aneurysm of iliac artery I72.3 Anxiety F41.9 Depression F32.9 Dementia F03.90 Hyperlipidemia E78.5 DVT prophylaxis Z29.9
[2020-01-29] MEDS: SERTRALINE HCL 50 MG TABLET PO SCH (09:48)
[2020-01-29] MEDS: PANTOprazole 40 MG TAB PO SCH (09:49)
[2020-01-29] MEDS: CYANOCOBALAMIN 500 MCG TABLET (VITAMIN B-12) PO SCH (09:49)
[2020-01-29] MEDS: ROSUVASTATIN CALCIUM 20 MG TAB PO SCH (09:49)
[2020-01-29] MEDS: MEMANTINE HCL 10 MG TAB PO SCH ×2 (09:49→20:00)
[2020-01-29] MEDS: DONEPEZIL HCL 10 MG TAB PO SCH (09:50)
[2020-01-29] MEDS: FINASTERIDE 5 MG TAB PO SCH (09:50)
[2020-01-29] MEDS: METOPROLOL SUCC 25MG EXT REL TAB PO SCH (09:53)
--- NOTE | 2020-01-29 14:08 | Urology Progress Note ---
Date of Service January 29, 2020 Assessment & Plan (1) Malignant neoplasm of urinary bladder: Patient is tolerating catheter without problems or issues. Has been draining well with CBI now off. Clear yellow urine without problems or clots. Patient overall doing well. He is ambulating. Is going to be started on a diet with hydration and close monitoring. Plan will be to continue to monitor. Likely can go home with catheter in place. Did discuss different options if patient continues to have issues. For now patient is doing well and will continue to monitor Admission and Anticipated Discharge Date Admission Date: January 27, 2020 Subjective Patient admitted with gross hematuria as well as discomfort with catheter in place draining clear urine without clots or red tinge after finishing CBI. Patient is afebrile. Has been supported with oral medications, IV medications, IV fluids, and oral intake. Is doing better without considerable increase in pain or major issues. Has not developed severe vomiting or other issues. Has not experienced fever or chills. Has been tolerating oral medications. Is tolerating fluids. Has noticed some frequency and urgency. Has not had severe pain in the back and flank. Does have occasional burning and irritation. No severe episodes or major changes. Urine has now completely cleared Review of Systems Review of Systems: All systems reviewed & are unremarkable except as noted in HPI & below Physical Exam Physical Exam: General: Alert in no acute distress. HEENT: Normocephalic Atraumatic. Inspection normal. Cranial Nerves 2-12 G rossly intact. Normal inspection of face. Normal inspection of neck. Psychologic: Normal affect. Respiratory: Nonlabored. No use of accessory muscles. No tachypnea or dyspnea. Cardiovascular: No tachycardia Skin: [place] and Dry. No rashes or visible lesions. Extremities/Lymphatics: No edema Abdomen: Soft Non-distended. No rebound or guarding. Results & Data ([facility]) Vital Signs (Past 12 Hours) Vital Signs Temp Pulse Resp BP Pulse Ox 01/29/20 09:46 83 121/69 01/29/20 07:07 36.7 C 83 16 100/66 93 PG Care Time/CCT Total # of Minutes Spent Total Time Spent with Patient: Total time spent is greater than 50% in coordination of care (as documented) at patient's floor/unit and/or counseling patient: Coding Level of Care Code 64611 Subseq Hosp Care Lvl 3 Diagnoses Malignant neoplasm of urinary bladder C67.9
[2020-01-29 15:16] VITALS: O2SAT 95
[2020-01-29] MEDS ORDERED: WARFARIN SOD 7.5 MG TAB PO SCH (16:00)
[2020-01-29 16:14] LABS: Appearance Urine Cloudy (Clear); Bacteria Urine Automated Negative (Negative); Bilirubin Urine Negative (Negative); Blood Urine 3+ (Negative); Color Urine Yellow; Epithelial Cell Urine Auto 0-5 /lpf (0-5); Glucose Urine UA Negative (Negative); Ketones Urine Negative (Negative); Leukocyte Esterase Urine 2+ (Negative); Nitrite Urine Negative (Negative); Protein Urine 2+ (Negative); Specific Gravity Urine 1.023 (1.000-1.030); Urobilinogen Urine Negative (Negative); WBC Urine Automated >30 /hpf (0-5)
[2020-01-29] MEDS: ALFUZOSIN HCL 10 MG TAB PO SCH (20:00)
[2020-01-29] MEDS: MELATONIN 3 MG TAB PO PRN (22:51)
[2020-01-30] MEDS: cefTRIAXone SODIUM 2,000 MG in DEXTROSE 5% 50 ML IV SCH (00:06)
[2020-01-30 05:56] LABS: Hematocrit (blood only) 39.4 % (42-52); Hemoglobin 13.1 g/dL (14.0-18.0); Mean Corpuscular Hemoglobin 30.2 pg (25-34); Mean Corpuscular Hgb Conc 33.2 g/dL (32-36); Mean Corpuscular Volume 90.8 fL (80-100); Mean Platelet Volume 10.8 fL (7.4-10.4); Platelet Count 193 K/uL (130-400); RDW Coefficient of Variation 13.6 % (11.5-14.5); RDW Standard Deviation 45.8 fL (36.4-46.3); Red Blood Count 4.34 M/uL (4.7-6.1); White Blood Count 7.27 K/uL (4.8-10.8)
[2020-01-30 06:09] LABS: INR 1.3 (0.9-1.1); Prothrombin Time 13.6 Seconds (9.0-12.0)
[2020-01-30 06:20] LABS: BUN Creatinine Ratio 14.5 (10-20); Calcium 8.5 mg/dl (8.5-10.1); Est GFR (African American) 83.5; Est GFR (Non-African American) 72.1; Potassium 3.7 mmol/L (3.5-5.1)
[2020-01-30 07:21] VITALS: BP 137/72; PULSE 73; TEMP 98.1
[2020-01-30] MEDS: CYANOCOBALAMIN 500 MCG TABLET (VITAMIN B-12) PO SCH (08:32)
[2020-01-30] MEDS: DONEPEZIL HCL 10 MG TAB PO SCH (08:32)
[2020-01-30] MEDS: FINASTERIDE 5 MG TAB PO SCH (08:32)
[2020-01-30] MEDS: METOPROLOL SUCC 25MG EXT REL TAB PO SCH (08:32)
[2020-01-30] MEDS: PANTOprazole 40 MG TAB PO SCH (08:32)
[2020-01-30] MEDS: SERTRALINE HCL 50 MG TABLET PO SCH (08:32)
[2020-01-30] MEDS: MEMANTINE HCL 10 MG TAB PO SCH (08:33)
[2020-01-30] MEDS: ROSUVASTATIN CALCIUM 20 MG TAB PO SCH (08:33)
[2020-01-30] MEDS ORDERED: ASPIRIN 81 MG ECTAB PO SCH (09:00)
--- NOTE | 2020-01-30 09:18 | Discharge Summary ---
Date of Service January 30, 2020 Admission HPI Per Admitting Provider 69-year-old male with past medical history of hyperlipidemia, coronary artery disease, mechanical AVR on warfarin, Dementia, transurethral resection of the prostate and resection of bladder tumor on January 01, 2020 presents as a direct admission from [address] for concerns of hematuria. Patient notes that worsening hematuria started this past Wednesday. Initially patient has a clot 'here and there' and usually self resolves. Patient is on Coumadin as noted above. Patient additionally notes that he has had dysuria that started 1 week ago. Per patient, his urologist at [facility] prescribed 1 tablet of an tifungal but no other antibiotics (Cx from 01/17/20 grew Linda Albicans). Patient otherwise denies any fevers, chills, sweats, urinary urgency/frequency/hesitancy, other urethral discharge, abdominal pain, chest pain, shortness of breath, known sick contacts or recent travel anywhere. Patient with no other acute concerns or complaints. No pelvic injury. OSH labs: Largely unremarkable CMP and CBC. At OSH, Patient given IV Rocephin and NSS 1 L. [facility] urology was consulted who recommended bladder ultrasound, which showed blood clots within the bladder. Further recommended placing a three-way urinary catheter with continuous bladder irrigation. Social history: Former smoker, quit 1995, 0.5 packs/day with 20-year pack history. Quit smokeless tobacco use (snuff) 4 years ago. Alcohol: Social. No other illicit drug use. Admission Exam Per Admitting Provider Constitutional: WD/WN, vitals as above Eyes: PERRL, conjunctivae normal, anicteric sclerae ENMT: external ear and nose normal, oropharynx normal Respiratory: normal respiratory effort, lungs clear to auscultation Cardiovascular: Rate/Rhythm: regular rate and regular rhythm Heart Sounds: + click (h/o AVR) Gastrointestinal (Abdomen): normal bowel sounds, soft, nontender, no hepatosplenomegaly Skin: no rashes, warm and dry Psychiatric: A+Ox3, euthymic affect Genitourinary: Pizano in place draining dark red urine Principal Diagnosis Hematuria Discharge Exam Constitutional WD/WN, vitals as above no acute distress Eyes + anicteric sclerae and PERRL ENMT mmm Neck normal visual inspection Respiratory normal respiratory effort, lungs clear to auscultation Cardiovascular Rate/Rhythm: regular rate and regular rhythm Heart Sounds: + murmur (click) Extremities: normal capillary refill; no calf tenderness and no edema Gastrointestinal (Abdomen) normal bowel sounds, soft, nontender, no hepatosplenomegaly Musculoskeletal no cyanosis or clubbing, extremities motor strength 5/5 Skin warm, dry Neurologic PERRL, EOMI, accommodation nl, no face palsy, no dysarthria Psychiatric Orientation: alert and oriented x 3 Genitourinary pizano with concentrated urine Lymphatic no cervical or axillary lymphadenopathy Discharge Data Allergies Allergy/AdvReac Type Severity Reaction Status Date / Time adhesive Allergy Mild RED SKIN Verified 01/09/20 09:03 ciprofloxacin Allergy Mild RASH Verified 01/09/20 09:03 doxycycline Allergy Mild GI UPSET Verified 01/09/20 09:03 Consultations 01/27/20 23:07 Consult Urology Routine Hospital Course (1) Hematuria: * Recent TURP and resection of bladder tumor 12/[address] Machado. Last seen in Urology office 01/09/20 where catheter was removed. Plan was for another cystoscopy in 4 to 6 weeks and likely BCG therapy with CT Abd/Pelvis in 1-2 weeks * Warfarin and ASA held on admission in setting of hematuria. H/h stabilized and medications resumed following successful continuous bladder irrigation as ordered by Urology. * Patient to have repeat labs in 2 days given subtherapeutic INR at 1.3 and has AVR * Had been on Ceftriaxone IV empirically and transitioned to Augmentin to complete course 14 days for likely pyelo as UA not collected prior to abx initiation. Repeat Cx no growth. Previous E.coli pansensitive * Discharged with pizano catheter and to have follow up with urology in 2-3 weeks for voiding trial and repeat cysto (2) Hypertension: * Chronic. * Per review of outpatient notes, patient recently had metoprolol decreased to 25mg daily and had gotten 50mg on admission but changed to 25mg on 01/28 * BP stable 137/72 prior to discharge (3) Bicuspid aortic valve: * Noted * Resuming Coumadin as above on 01/28, INR 1.3. 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 Ferrari. ASA hold as above -- resumed (5) Anxiety: * with depression/dementia * Continued home sertraline, Namenda (6) Depression: * as above (7) Dementia: * continued Namenda (8) Hyperlipidemia: * Continued Crestor (9) DVT prophylaxis: * Coumadin resumed as above Discharged home with family with Pizano catheter in place Sent with rx for Augmentin Follow up with PCP, Urology Total Time Total Time Spent Total Time Spent (In Minutes): 60 Discharge Plan Discharge Items Patient Disposition: Home - Self-Care Reason For Visit: HEMATURIA Discharge Diagnosis: Hematuria Goals: You have been hospitalized for an acute medical problem. During your stay at [facility], we have made an effort to correct the problem that brought you to the hospital while keeping you as comfortable as possible. Medications were used to bring your condition under control and your discharge instructions will include directions for any medications you should take after leaving the hospital. Please make sure you see your Primary Care Provider as part of your follow up plan. Activity: Resume your previous activity Non-emergency contact: Primary Care Provider and Urologist Call non-emergency contact if: you have any medication questions, your symptoms worsen, your pain is concerning for you and you have a fever Follow-up/Referrals: Raine Garcia PA-C [Primary Care Provider] - 02/05/20 1:30 pm Oli Machado DO [Physician] - 02/13/20 1:40 pm Diet: Heart Healthy Ambulatory Orders: Basic Metabolic Panel (Routine) Timeframe: 2 Days Location: Determined by Patient Ordered By: Kristy Hoffmann Complete Blood Count no Diff (Timed) Timeframe: 2 Days Location: Determined by Patient Ordered By: Kristy Hoffmann Prothrombin Time INR (Timed) Timeframe: 2 Days Location: Determined by Patient Ordered By: Kristy Hoffmann Addtl Attending Provider Instructions: You have been hospitalized for hematuria. Urology was consulted and your underwent bladder irrigation with improvement of this bleeding. Blood counts have remained stable and your Coumadin was resumed. You have been provided lab slips to have your INR re-checked in the next 1-2 days, as it was resumed and your INR was only 1.3 this morning. You will also be provided slip to repeat your blood counts and kidney function at the same time. You have also been given IV antibiotics prior to sending a urine culture down and based on infected appeared urine, you will continue with oral antibiotics to complete course of total 14 days as follows: * Augmentin 875mg by mouth TWICE daily for additional 11 days You are being sent home with pizano catheter per Urology and will need follow up with their office in the next 2-3 week for follow up cystoscopy and pizano removal. An appointment has already been made for you. If you have any questions/concerns prior to this appointment regarding your pizano, please call their office at . Please return to the emergency department if you have any worsening bleeding, fever, pain, or for any other symptoms that are concerning for you. It has been a pleasure being a part of the medical team providing for you while you have been in the hospital. Take care! Pending Studies at Discharge: Yes Studies:: Urine Culture Stand-Alone Forms: My [facility] AFINOS, Smoking Cessation Medications and DC Order Prescriptions: New amoxicillin-pot clavulanate [Augmentin] 875-125 mg tablet 1 tab PO BID 11 Days Qty: 22 RF: 0 oxybutynin chloride 5 mg Tablet 5 mg PO BID PRN (Reason: bladder spasms) Qty: 4 RF: 0 Continued warfarin 5 mg tablet 5 mg PO DAILY Qty: 90 RF: 3 finasteride [Proscar] 5 mg tablet 5 mg PO DAILY Qty: 90 RF: 1 omeprazole 20 mg tablet,delayed release (DR/EC) 20 mg PO DAILY Qty: 90 RF: 1 sertraline 25 mg tablet 25 mg PO DAILY Qty: 30 RF: 2 donepezil [Aricept] 10 mg tablet 10 mg PO DAILY Qty: 90 RF: 1 metoprolol succinate 50 mg tablet extended release 24 hr 25 mg PO DAILY Qty: 90 RF: 1 cyanocobalamin (vitamin B-12) 1,000 mcg tablet 1,000 mcg PO DAILY Qty: 90 RF: 3 aspirin 81 mg tablet,delayed release (DR/EC) 81 mg PO QPM RF: 0 rosuvastatin [Crestor] 40 mg tablet 40 mg PO DAILY RF: 0 alfuzosin [Uroxatral] 10 mg tablet extended release 24 hr 10 mg PO QPM RF: 0 memantine [Namenda] 10 mg tablet 10 mg PO BID RF: 0 oxycodone-acetaminophen [Percocet] 7.5-325 mg tablet 1 tab PO Q8H PRN (Reason: pain) Qty: 7 RF: 0 Discontinued fluconazole 150 mg tablet 150 mg PO ONCE 1 Days Qty: 1 RF: 0 Discharge Orders: Discharge Order (Routine); Ordered 01/30/20 Ordered By: Kristy Stewart/Other Patient Handouts: What is Hematuria?, Hematuria: Possible Causes, Emptying and Cleaning Your ..., Indwelling Urinary Catheter Dc, Discharge Instructions Caring for ... Admission Data Admit Date/Time: 01/29/20 16:55 Attending Provider: Ze Zambrano Admit Provider: Amaury Mayo Primary Care Provider: Raine Garcia Other Providers: Allyssa Dixon Other Interventions: Discharge Summary Assessment (RN) Last Done: 01/30/20 10:31 Coding Level of Care Code D/C Day Management >30 mins Diagnoses Hematuria R31.9 Hypertension I10 Bicuspid aortic valve Q23.1 Aneurysm of iliac artery I72.3 Anxiety F41.9 Depression F32.9 Dementia F03.90 Hyperlipidemia E78.5 DVT prophylaxis Z29.9
--- NOTE | 2020-01-30 10:17 | Urology Progress Note ---
Date of Service January 30, 2020 Assessment & Plan (1) Malignant neoplasm of urinary bladder: Hematuria has resolved Leave catheter in place Okay for discharge home from a standpointoutpatient follow-up for voiding trial Admission and Anticipated Discharge Date Admission Date: January 29, 2020 Subjective Feels well Urine remains clear overnight No manual irrigation required Anxious to go home Review of Systems Review of Systems: All systems reviewed & are unremarkable except as noted in HPI & below Physical Exam Physical Exam: Urine clear throughout the tubing and bagno clots Constitutional: well developed and well nourished Respiratory: no respiratory distress Cardiovascular: Extremities: no pedal edema Gastrointestinal (Abdomen): Inspection/Auscultation: abdomen normal to inspection Results & Data ([facility]) Vital Signs (Past 12 Hours) Vital Signs Temp Pulse Resp BP Pulse Ox 01/30/20 07:19 36.7 C 73 16 137/72 95 01/29/20 23:16 36.8 C 65 17 93/58 L 95 PG Care Time/CCT Total # of Minutes Spent Total Time Spent with Patient: Total time spent is greater than 50% in coordination of care (as documented) at patient's floor/unit and/or counseling patient: Coding Level of Care Code 08784 Subseq Hosp Care Lvl 2 Diagnoses Malignant neoplasm of urinary bladder C67.9
== END 2020-01-30 13:37 | disposition home or self-care (01) | DRG 688 ==
LOC: 3W 20:47 → SUATTDRO 20:47 → INTOOBSV 20:47

== ENCOUNTER 2020-03-11 10:50 | Observation (INO) ==
--- NOTE | 2020-02-23 14:20 | PAT Medication Instructions ---
Medication Instructions Date of Service February 23, 2020 Home Medications Medication Instructions Recorded warfarin 5 mg tablet 5 mg PO DAILY #90 tab 08/15/19 warfarin 5 mg tablet 5 mg PO DAILY aspirin 81 mg PO QPM alfuzosin [Uroxatral] 10 mg PO QPM memantine [Namenda] 10 mg PO BID rosuvastatin [Crestor] 40 mg PO QPM cyanocobalamin (vitamin B-12) 1,000 mcg PO QPM donepezil [Aricept] 10 mg PO QPM finasteride [Proscar] 5 mg PO QPM metoprolol succinate 50 mg PO QPM omeprazole 20 mg PO QAM sertraline 25 mg PO QPM ASK your prescriber and surgeon warfarin 5 mg tablet 5 mg PO DAILY aspirin 81 mg PO QPM Take morning of surgery With a small sip of water, OTHERWISE NOTHING TO EAT OR DRINK AFTER MIDNIGHT: memantine [Namenda] 10 mg PO BID omeprazole 20 mg PO QAM Take evening before surgery alfuzosin [Uroxatral] 10 mg PO QPM memantine [Namenda] 10 mg PO BID rosuvastatin [Crestor] 40 mg PO QPM cyanocobalamin (vitamin B-12) 1,000 mcg PO QPM donepezil [Aricept] 10 mg PO QPM finasteride [Proscar] 5 mg PO QPM metoprolol succinate 50 mg PO QPM sertraline 25 mg PO QPM Other Notes If you have any questions please call us at [phone] or [phone] or [phone] or [phone]
--- NOTE | 2020-02-27 10:41 | Anesthesiology Consultation ---
Date of Service February 27, 2020 Assessment & Plan (1) Encounter for pre-operative examination: COVID Status: As of 02/26 assessment, patient denies travel to endemic area, known exposure/sick contacts, or symptoms of COVID19. Patient instructed that they and their household members must follow strict social distancing guidelines, wear a mask in public and avoid travel for 14 days prior to surgery. Preoperative COVID19 testing to be completed prior to surgery per surgeon's ar rangements. Patient made aware to self-isolate as much as possible between COVID testing and surgery. Patient evaluated preoperatively by cardiology on 12/21 for TURBT done 12/31 @ [facility]. Procedure done with MAC, well-tolerated. Clinical status has remained stable since then aside from bladder/prostate issues, as reported by pt and his . Chart Review Chart Review: Acceptable Risk for Surgery and Patient seen in Pre Admission Testing Teaching & Discussion Instructed NPO after midnight before surgery, except medications with 15 cc of water. Medication instructions provided according to the PAT guidelines. History Surgery Operation Date: 03/11/20 07:15 Proposed Procedures p Transurethral Resection Prostate - Oli Machado DO Height/Weight Height: 5 ft 6 in Weight: 87.9 kg Allergies Allergy/AdvReac Type Severity Reaction Status Date / Time adhesive Allergy Mild RED SKIN Verified 02/23/20 11:42 ciprofloxacin Allergy Mild RASH Verified 02/23/20 11:42 doxycycline Allergy Mild GI UPSET Verified 02/23/20 11:42 Medications Home Medications Medication Instructions Recorded Confirmed Last Taken warfarin 5 mg tablet 5 mg PO DAILY #90 tab 08/15/19 02/23/20 12/28/19 aspirin 81 mg PO QPM 12/21/19 02/23/20 12/31/19 18:00 alfuzosin [Uroxatral] 10 mg PO QPM 01/01/20 02/23/20 12/31/19 18:00 memantine [Namenda] 10 mg PO BID 01/01/20 02/23/20 12/31/19 18:00 rosuvastatin [Crestor] 40 mg PO QPM 01/01/20 02/23/20 12/31/19 18:00 cyanocobalamin (vitamin B-12) 1,000 mcg PO QPM 02/23/20 02/23/20 Unknown donepezil [Aricept] 10 mg PO QPM 02/23/20 02/23/20 Unknown finasteride [Proscar] 5 mg PO QPM 02/23/20 02/23/20 Unknown metoprolol succinate 50 mg PO QPM 02/23/20 02/23/20 Unknown omeprazole 20 mg PO QAM 02/23/20 02/23/20 Unknown sertraline 25 mg PO QPM 02/23/20 02/23/20 Unknown Past Medical History Medical History (Updated 02/27/20 @ 08:50 by Agusto Mtz) 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 MONITORED YEARLY. Aneurysm of thoracic aorta MONITORED YEARLY WITH DR. MOORE Anticoagulant long-term use Arthritis Benign localized hyperplasia of prostate with urinary obstruction Bicuspid aortic valve S/P MECHANICAL AVR 2012. ON COUMADIN. CAD (coronary artery disease) NON-OBSTRUCTIVE Cancer BLADDER CANCER (S/P TB FLUSH TREATMENT) Dementia WITH ASSC. BEHAVIORAL/MOOD CHANGES. FO[place] WITH DR REYES, [facility] First degree atrioventricular block GERD (gastroesophageal reflux disease) CONTROLLED Hearing deficit Hiatal hernia History of supraventricular tachycardia AVNRT, S/P ABLATION (2008), ASYMPTOMATIC. Hyperlipidemia Hypertension Kidney stones Malignant neoplasm of urinary bladder Mobitz type I Wenckebach atrioventricular block TRANSIENT. Obesity Osteoarthritis Poor historian Vitamin B12 deficiency Exercise / Class Metabolic Activity II 4-5 Yardwork/Stairs/Walk up hill (Denies CP or SOB with 1 FOS, has stairs at home.) Past Family History Family History Brother Alcohol abuse Heart disease Crohn's disease Myocardial infarction Sister Anxiety Heart disease Crohn's disease Depression Kidney disease Myocardial infarction Mother Heart disease Myocardial infarction Other Coronary heart disease Denies family history of Ovarian cancer Prostate cancer Breast cancer Colorectal cancer Past Surgical History Surgical History Fusion of spine LUMBAR FUSION AND DISCECTOMY History of anesthesia reaction CONFUSED/AGITATED AND SLOW TO WAKE UP History of arthroscopy LEFT KNEE History of biopsy of bladder History of cardiac cath 2012 History of carpal tunnel release LEFT History of cataract surgery B/L History of cholecystectomy History of colonoscopy History of cystoscopy + KIDNEY STONE EXTRACTION History of esophagogastroduodenoscopy (EGD) History of heart valve replacement AVR (2012) History of herniorrhaphy History of tooth extraction History of vascular surgery S/P LEFT COMMON ILIAC ARTERY ANEURYSM REPAIR Hx of elbow surgery ELBOW SURGERY (ULNAR NERVE) Hx of shoulder surgery LEFT X 2 RT X 1 Hx of transurethral resection of prostate Past Anesthesia History No Hx of Anesthesia Complications and No Family Hx of Anesthesia Complications History of PONV No Hx of Motion Sickness and History of PONV (remote hx, not with more recent surgeries) Social History Smoking Status: Former smoker tobacco type: smokeless tobacco Smoking cigarettes per day: QUIT IN 2001; <1 X 20 YEARS Do You Dip or Chew Tobacco: Yes (2-3 CANS PER WEEK) Smoking End Date: QUIT AGE 43 YRS Hx Alcohol Use: Yes Alcohol type: beer alcohol intake frequency: a few times a month Hx Substance Use: No substance use type: does not use Review of Systems Pt denies any recent chest pain, shortness of breath, palpitations, cough, fever, URI, or uncontrolled acid reflux (controlled with PPI). Physical Exam Vital Signs BP: 93/58 (pt is asymptomatic, denies lightheadedness/dizziness) P: 73bpm SPO2: 95% RA T: 98.9 F R: 12 ENMT Mouth: + edentulous Thyromental Distance: < 3.5 Finger Breadths (3) Mallampati Class: II Neck normal visual inspection and + facial hair (short macdonald and mustache/goatee); neck extension not limited Respiratory normal respiratory effort Auscultation: lungs clear to auscultation bilaterally Cardiovascular Rate/Rhythm: regular rate and regular rhythm Heart Sounds: no murmur Extremities: no edema Click of mechanical AV heard across precordium with radiation to back. Testing Laboratory Results 02/27/20 10:50 02/27/20 10:50 Urine Color Dark Yellow 02/27/20 10:50 Urine Appearance Cloudy (Clear) A 02/27/20 10:50 Urine pH 5.0 (4.5-7.5) 02/27/20 10:50 Ur Specific Langdon 1.024 (1.000-1.030) 02/27/20 10:50 Urine Protein Negative (Negative) 02/27/20 10:50 Urine Glucose (UA) Negative (Negative) 02/27/20 10:50 Urine Ketones Trace (Negative) H 02/27/20 10:50 Urine Nitrite Negative (Negative) 02/27/20 10:50 Ur Leukocyte Esterase 2+ (Negative) H 02/27/20 10:50 Urine WBC (Auto) >30 /hpf (0-5) H 02/27/20 10:50 Urine RBC (Auto) 5-10 /hpf (0-4) H 02/27/20 10:50 U Hyaline Cast (Auto) 1-5 /lpf (0-5) 02/27/20 10:50 U Epithel Cells (Auto) 0-5 /lpf (0-5) 02/27/20 10:50 Urine Bacteria (Auto) 1+ (Negative) H 02/27/20 10:50 Electrocardiogram Date: 12/22/19 Findings: + NSR @ (77bpm) Chest X-Ray Date: 12/25/19 Findings: + NAD Echocardiogram Date: 09/24/16 EF: 60-65% Normal LV size and systolic function. No regional wall motion normalities. Moderate concentric LVH. Type I diastolic dysfunction. Mechanical aortic valve with appropriate transvalvular gradients/velocities. No significant change from prior study on 12/01/2012. Stress Test Date: 11/24/19 Resting EF: 55-59% Stress test negative for inducible ischemia at achieved workload. Inadequate cardiovascular stress test as patient obtained 70% of the age-predicted maximal target heart rate. Patient exercised for 7 minutes of the Kirill protocol with a functional capacity of 7 METS. No significant arrhythmias were noted. Normal blood pressure and heart rate response to exercise. Other Testing Aorta-iliac duplex 02/21/20 Abdominal aorta is within normal limits; no aneurysm or stenosis identified. Aneurysm of the distal right common iliac artery identified measuring 2.1 cm. Patent endovascular repair of the left common iliac artery with no evidence of stenosis or endoleak. The left AUGUSTO limb measures 1.7 cm. The bilateral common iliac, external iliac and common femoral arteries are patent with no hemodynamically significant stenosis. Compared to the previous study performed 12/26/2018, there is no significant change. Carotid Doppler 11/24/19 < 50% stenosis of internal carotid arteries B/L.
[2020-02-27 12:31] LABS: BUN Creatinine Ratio 15.2 (10-20); Calcium 8.7 mg/dl (8.5-10.1); Creatinine Clr Calc Pharmacy 68.3 ml/min; Est GFR (African American) 82.6; Est GFR (Non-African American) 71.3; Potassium 4.7 mmol/L (3.5-5.1)
[2020-02-27 13:35] LABS: Basophils # (auto) 0.01 K/uL (0-0.2); Basophils % (auto) 0.2 %; Eosinophils # (auto) 0.18 K/uL (0-0.5); Eosinophils % (auto) 3.6 %; Hematocrit (blood only) 41.3 % (42-52); Hemoglobin 13.2 g/dL (14.0-18.0); Immature Granulocytes # (auto) 0.01 K/uL (0.00-0.02); Immature Granulocytes % (auto) 0.2 %; Lymphocytes % (auto) 22.2 %; Mean Corpuscular Hemoglobin 30.2 pg (25-34); Mean Corpuscular Volume 94.5 fL (80-100); Mean Platelet Volume 10.9 fL (7.4-10.4); Monocytes # (auto) 0.47 K/uL (0.11-0.59); Monocytes % (auto) 9.5 %; Neutrophils # (auto) 3.19 K/uL (1.4-6.5); Neutrophils % (auto) 64.3 %; Platelet Count 212 K/uL (130-400); RDW Coefficient of Variation 13.6 % (11.5-14.5); RDW Standard Deviation 46.9 fL (36.4-46.3); Red Blood Count 4.37 M/uL (4.7-6.1); White Blood Count 4.96 K/uL (4.8-10.8)
[2020-02-27 13:39] LABS: Appearance Urine Cloudy (Clear); Bilirubin Urine Negative (Negative); Blood Urine Trace (Negative); Color Urine Dark Yellow; Epithelial Cell Urine Auto 0-5 /lpf (0-5); Glucose Urine UA Negative (Negative); Ketones Urine Trace (Negative); Leukocyte Esterase Urine 2+ (Negative); Nitrite Urine Negative (Negative); Protein Urine Negative (Negative); Specific Gravity Urine 1.024 (1.000-1.030); Urobilinogen Urine Negative (Negative); WBC Urine Automated >30 /hpf (0-5)
[2020-02-27 14:10] LABS: Bacteria Urine Automated 1+ (Negative)
[~2020-03-11 10:50] MED LIST changes: -ACET-1311 PO; -ASPI81TA28 PO; -FINA5TAB PO; +LACTATED RINGER'S 1,000 ML IV SCH; -METO50TA16 PO; -PRLSR20 PO; -ROSU20TA PO; -TAMS0.4C59 PO; -WARF5TAB90 PO; +ceFAZolin 2000MG 2,000 MG/15 ML SYR IV SCH
[2020-03-11 11:31] LABS: INR 1.1 (0.9-1.1); Partial Thromboplastin Time 26.8 Seconds (21.0-31.0); Prothrombin Time 11.7 Seconds (9.0-12.0)
--- NOTE | 2020-03-11 11:40 | History & Physical Bridge Note ---
Date of Service March 11, 2020 History & Physical Bridge Note I have examined the patient, reviewed the History & Physical and in the interval since the performance of the History & Physical I have noted the following changes of clinical significance: no changes noted
[2020-03-11] MEDS ORDERED: fentaNYL citrate 100 MCG/2 ML VIAL IV PRN (12:12)
[2020-03-11] MEDS ORDERED: ONDANSETRON INJ 2 MG/ML 2 ML VIAL IV PRN ×2 (12:12→12:43)
[2020-03-11] MEDS ORDERED: HYDROmorphone INJ 1 MG/ML SYRINGE IV PRN (12:12)
[2020-03-11] MEDS ORDERED: ATROPINE SULFATE 0.1 MG/ML 10ML SYR IV PRN (12:12)
[2020-03-11] MEDS ORDERED: ePHEDrine sulfate 50 MG/ML AMP IV PRN (12:12)
[2020-03-11] MEDS ORDERED: MIDAZOLAM HCL 1 MG/ML 2ML VIAL ONE (12:33)
[2020-03-11] MEDS ORDERED: fentaNYL citrate 100 MCG/2 ML VIAL ONE (12:33)
[2020-03-11] MEDS ORDERED: PROPOFOL IV EMULSION 10 MG/ML 20 ML VIAL IV ONE ×6 (12:43→13:51)
[2020-03-11] MEDS ORDERED: LIDOCAINE HCL 2% 2 ML VIAL/AMP(20MG/ML) INFIL ONE (12:43)
[2020-03-11] MEDS ORDERED: oxyCODONE HCL IR 5 MG TAB (IMMEDIATE RELEASE) PO PRN (12:43)
[2020-03-11] MEDS ORDERED: MoRPHine SULFATE 2 MG/ML CARP IV PRN (12:43)
[2020-03-11] MEDS ORDERED: BELLADONNA/OPIUM SUPP 60 MG SUPP PR ONE (12:43)
[2020-03-11] MEDS ORDERED: ONDANSETRON INJ 2 MG/ML 2 ML VIAL ONE (12:44)
[2020-03-11] MEDS ORDERED: SODIUM CHLORIDE 0.9% INJ 10 ML VIAL ONE (12:53)
[2020-03-11] MEDS ORDERED: ePHEDrine sulfate 50 MG/ML AMP ONE (12:53)
[2020-03-11] MEDS ORDERED: DIATRIZOATE MEGLUMINE 30% 100ML VIAL INSTIL ONE (13:56)
--- NOTE | 2020-03-11 14:23 | Operative Report ---
PG Post Operative Report Pre & Post Diagnosis Operation Date: 03/11/20 12:35 Pre-Op Diagnosis: Gross Hematuria Post-Op Diagnosis: Gross Hematuria I identified the patient and participated in the time-out.: Yes Procedure Operation Date: 03/11/20 12:35 Actual Procedures p Transurethral Resection of Prostate, cystoscopy, Bilateral retrograde pyelogram, Left ureteroscopy, ureteral Dilation, Left stent(Not Applicable) - Oli Machado DO Surgeon Oli Machado, II, DO Emd Teacher None Estimated Blood Loss 10 Findings Consistent with Post-Op Diagnosis Large Prostate with obstruction. Stricture of left ureter. Specimens Prostate adenoma. Drains 6 Fr Multilength on left. No tether [address]. Anesthesia Type General Complications none Disposition Disposition: Recovery Room Indications Patient with obstruction due to prostate enlargement. Risks and benefits discussed at length. Description of Procedure Patient was consented and brought back to the operating room. Patient was placed under anesthesia in the supine position and moved to the dorsal lithotomy position. Patient was prepped and draped in the regular sterile fashion. A time out was completed. A 30degree Cystoscope was placed into the bladder and the entire bladder was examined. The UO's were identified as well as the bladder neck, trigone, dome, and the other important landmarks. The prostatic urethra and large lobes/adenoma was assessed and the veru and bladder neck identified and area/size was assessed. The resection scope was placed and the fine bipolar loop was selected. Starting at the 5 and 7 o'clock positions, a channel was created from bladder neck to the veru to remove further tissues. The 1 and 11 o'clock positions were then resected and resection followed down the lateral lobes to the capsule starting at 1 and 11 o'clock and moving towards 6 o'clock. A very large amount of tissue was resected. The Specimen was removed and sent for analysis. The resection bed and any bleeding areas were fulgurated/cauterized and the entire area inspected. All bleeding was controlled. The UO's were identified. The UO on each side was cannulized with a catheter and a retrograde pyelogram was completed. The right did not have any significant issues or filling defects. A stricture was noted on the left. A wire was then placed. The Rigid ureteroscope was taken into the left ureter. The distal ureter was dilated and the scope advanced. The entire area was once again examined. No masses, lesions, or areas of concern were noted. The scope was slowly removed with the wire left in place. Contrast was placed through the scope for a pyelogram to assist in stent placement. The entire ureter was examined as the scope was slowly removed. No obstructions or other areas of concern were noted. With the wire in place, a 6 Fr Double J stent was placed. It was confirmed with fluoroscopy. The bladder was inspected a final time. The bladder was emptied and irrigated. All specimen and debris was removed. The scope was removed with the bladder partially full. A catheter was placed and balloon elevated. This was easily irrigated. The catheter was attached to CBI. The patient was cleaned, aroused from anesthesia, and transferred to the pacu in stable condition having tolerated the procedure well with no complications. I was present and participated in all aspects of the procedure. The patient will be monitored in the PACU until transferred. I attest to the content of the Intraoperative Record and any orders documented therein. Any exceptions are noted below.
--- NOTE | 2020-03-11 14:40 | Fluoroscopy Report ---
FL retrograde includes kub HISTORY: 69 years-old Male TURP bilateral retrograde cystourethrogram COMPARISON: KUB 03/08/2020 TECHNIQUE: 4 spot fluoroscopic images of the abdomen were obtained utilizing 70.2 seconds fluoroscopy time FINDINGS: Left ureteral stent appears to be in satisfactory positioning. Cannulation of the right distal ureter with retrograde injection of contrast. No right-sided hydronephrosis, hydroureter or ureteral fillin g defect. Cholecystectomy. Aorta left iliac stent graft. IMPRESSION: Fluoroscopic assistance as above. Please see procedural report for further details. ACT 112: Negative or not required by law. The above report was generated using voice recognition software. It may contain grammatical, syntax o r spelling errors. Electronically signed by: Genaro Echols M.D. 03/11/2020 2:38 PM
--- NOTE | 2020-03-11 15:17 | Anesthesiology Progress Note ---
Date of Service March 11, 2020 Anesthesia Post Procedure Vital Signs Vital Signs: Temp Pulse Pulse Resp BP BP Pulse Ox 03/11/20 15:15 63 18 120/70 95 03/11/20 15:00 62 15 122/69 95 03/11/20 14:55 36.1 C L 61 17 116/68 95 03/11/20 14:45 62 16 117/68 96 03/11/20 14:35 67 19 120/67 97 03/11/20 14:27 36.0 C L 69 15 102/65 94 03/11/20 11:19 36.6 C 65 16 111/69 94 Transfer of Care Handoff Completed per policy Notes Mental Status: alert / awake / arousable and participated in evaluation Patient Amnestic to Procedure: Yes Nausea / Vomiting: adequately controlled Pain: adequately controlled Airway Patency, RR, SpO2: stable & adequate BP & HR: stable & adequate Hydration State: stable & adequate Anesthetic Complications: no major complications apparent and Pt Satisfied with anesthetic care
[2020-03-11] MEDS: SODIUM CHLORIDE 0.9% 1000ML 1,000 ML IV SCH (16:37)
[2020-03-11 16:51] LABS: Eosinophils # (auto) 0.15 K/uL (0-0.5); Eosinophils % (auto) 3.1 %; Hematocrit (blood only) 40.9 % (42-52); Hemoglobin 13.5 g/dL (14.0-18.0); Lymphocytes # (auto) 1.29 K/uL (1.2-3.4); Mean Platelet Volume 10.9 fL (7.4-10.4); Monocytes # (auto) 0.39 K/uL (0.11-0.59); Monocytes % (auto) 8.2 %; Neutrophils # (auto) 2.95 K/uL (1.4-6.5); Neutrophils % (auto) 61.7 %; Platelet Count 153 K/uL (130-400); RDW Coefficient of Variation 13.2 % (11.5-14.5); Red Blood Count 4.35 M/uL (4.7-6.1); White Blood Count 4.78 K/uL (4.8-10.8)
[2020-03-11 17:20] LABS: BUN Creatinine Ratio 14.9 (10-20); Calcium 7.9 mg/dl (8.5-10.1); Creatinine Clr Calc Pharmacy 70.1 ml/min; Est GFR (African American) 85.5; Est GFR (Non-African American) 73.8; Potassium 4.2 mmol/L (3.5-5.1)
[2020-03-11] MEDS: METOPROLOL SUCC 50MG EXT REL TAB PO SCH (19:59)
[2020-03-11] MEDS: DONEPEZIL HCL 10 MG TAB PO SCH (20:00)
[2020-03-11] MEDS: CYANOCOBALAMIN 500 MCG TABLET (VITAMIN B-12) PO SCH (20:00)
[2020-03-11] MEDS: MEMANTINE HCL 10 MG TAB PO SCH (20:00)
[2020-03-11] MEDS: SERTRALINE HCL 50 MG TABLET PO SCH (20:01)
[2020-03-11] MEDS: ROSUVASTATIN CALCIUM 20 MG TAB PO SCH (20:01)
[2020-03-11] MEDS: ALFUZOSIN HCL 10 MG TAB PO SCH (20:01)
[2020-03-11] MEDS: DOCUSATE SODIUM 100 MG CAP PO SCH (20:05)
[2020-03-11] MEDS: ceFAZolin 2000MG 2,000 MG/15 ML SYR IV SCH (20:05)
[2020-03-12] MEDS: SODIUM CHLORIDE 0.9% 1000ML 1,000 ML IV SCH ×2 (03:57→13:28)
[2020-03-12] MEDS: ceFAZolin 2000MG 2,000 MG/15 ML SYR IV SCH (04:38)
[2020-03-12] MEDS ORDERED: PIPERACILL/TAZOBAC CONSULT ACTIVE PRN (08:01)
--- NOTE | 2020-03-12 08:08 | Urology Progress Note ---
Date of Service March 12, 2020 Assessment & Plan (1) Hematuria, gross: (2) Nephrolithiasis: (3) BPH w urinary obs/LUTS: Postop day 1 patient status post TURP with left stent placement and dilation of ureter. Patient with 38.3 temp overnight. Preop culture had a low count of fungus like ly associated with catheter as well as history of pansensitive E. coli over the summer. Patient has been kept on Ancef. Had a temperature overnight with low- grade temperatures in the morning. Patient is comfortable and resting without major issue or problems. His blood pressure is slightly low. Is not showing any other signs of systemic inflammatory response. No other major problems or issues. Plan is to escalate antibiotics with pseudomonal coverage. We will change to Zosyn. We will also add antifungal. Patient is otherwise tolerating catheter. We will plan to monitor for the day. Will reassess later today. We will continue to titrate CBI to clear with plans to try to clamp later today. We will continue to monitor. Will consult medicine for assistance in management of multiple medical and cardiac issues during admission. Admission and Anticipated Discharge Date Admission Date: March 11, 2020 Subjective Postop from resection of prostate and left stent placement for obstruction issues. Patient has been tolerating well. Has noticed some frequency and urgency. Has not had severe pain in the back and flank. Does have occasional burning and irritation. No subjective severe episodes or major changes. No new nausea or vomiting. Had tolerated anesthesia without major problems. Overnight had 38.3 fever with low-grade fevers in the early a.m. Has been tolerating diet without major issue. CBI has slowed to a slow drip and is being titrated to clear. Review of Systems Review of Systems: All systems reviewed & are unremarkable except as noted in HPI & below Physical Exam Physical Exam: General: Alert in no acute distress. HEENT: Normocephalic Atraumatic. Inspection normal. Cranial Nerves 2-12 Grossly intact. Normal inspection of face. Normal inspection of neck. Psychologic: Normal affect. Respiratory: Nonlabored. No use of accessory muscles. No tachypnea or dyspnea. Cardiovascular: No tachycardia Skin: Callahan and Dry. No rashes or visible lesions. Extremities/Lymphatics: No edema Abdomen: Soft Non-distended. No rebound or guarding. Results & Data ([facility]) Vital Signs (Past 12 Hours) Vital Signs Temp Pulse Pulse Resp BP BP Pulse Ox 03/12/20 07:54 37.0 C 90 18 102/69 92 03/12/20 07:27 97 H 03/12/20 04:00 37.6 C H 101 H 20 96/65 L 90 03/12/20 01:15 37.8 C H 03/11/20 22:56 38.3 C H 94 H 18 116/75 91 03/11/20 22:20 86 PG Care Time/CCT Total # of Minutes Spent Total Time Spent with Patient: Total time spent is greater than 50% in coordination of care (as documented) at patient's floor/unit and/or counseling patient: Coding Level of Care Code 94098 Subseq Hosp Care Lvl 3 Diagnoses Hematuria, gross R31.0 Nephrolithiasis N20.0 BPH w urinary obs/LUTS N40.1; N13.8
[2020-03-12] MEDS ORDERED: PIPERACILLIN/TAZOBACTAM 3.375 GM in DEXTROSE 5% 100 ML IV STA (08:15)
[2020-03-12] MEDS: PANTOprazole 40 MG TAB PO SCH (08:16)
[2020-03-12] MEDS: MEMANTINE HCL 10 MG TAB PO SCH ×2 (08:16→21:46)
[2020-03-12] MEDS: DOCUSATE SODIUM 100 MG CAP PO SCH ×2 (08:22→21:46)
--- NOTE | 2020-03-12 08:35 | Hospitalist Consultation ---
Date of Consultation March 12, 2020 Assessment & Plan (1) BPH w urinary obs/LUTS: s/p turp 03/11 with left ureteral dilatation (2) Status post mechanical aortic valve replacement: Patient status post bicuspid aortic valve replacement 2012 maintained on chronic Coumadin. Coumadin is reversed with the surgery. His aortic valve is a high flow valve will try to return to anticoagulation if hematuria remains without significant change would recommend initiating anticoagulation on 03/13, typically we would start with heparin product. If there is concern about bleeding we could start with a heparin drip which is more easily turned off at adult dose with bolus. If not significant concern would start with enoxaparin and then once we are sure the bleeding is not occurring with his surgery would overlap with Coumadin until INR is appropriate for his valve likely in the 2.5 range (3) CAD in [place] artery: Patient previously has been on aspirin 81 metoprolol 50 Crestor 40. His anticoagulation and platelets have been held metoprolol is continued as of slightly lower blood pressure today continue to follow and continue beta-joesph as well long as he is tolerating it (4) Major neurocognitive disorder: Despite the patient is a 69 is on both Aricept and Namenda these are maintained for surgery and antidepressant is also maintained on Zoloft 25 History of Present Illness Attending Physician: Oli Machado, II, DO History of Present Illness into his bladder who presents after having [id number] male previously treated for high-grade urothelial carcinoma with BCG infusions transurethral resection of the prostate. based upon his previous cardiovascular risk with coronary disease and mechanical aortic valve replacement on chronic anticoagulation. Medical consultation is Patient has persistent postop gross hematuria. Patient also did develop a fever in the postoperative period. The patient has a history of both an E. coli and fungal urinary tract infection in the past. cephalosporin perioperative coverage when the fever occurred. Patient was on typical however urine cultures and blood cultures were not obtained prior to administration of these medications. Patient was subsequently changed to Zosyn and Diflucan Urine culture will be obtained although its results may not be as helpful and next fever blood cultures may be obtained if significantly elevated. Allergies Allergy/AdvReac Type Severity Reaction Status Date / Time adhesive Allergy Mild RED SKIN Verified 03/11/20 11:08 ciprofloxacin Allergy Mild RASH Verified 03/11/20 11:08 doxycycline Allergy Mild GI UPSET Verified 03/11/20 11:08 Home Medications Home Medications Medication Instructions Recorded Confirmed Type warfarin 5 mg tablet 5 mg PO DAILY #90 tab 08/15/19 03/11/20 Rx aspirin 81 mg PO QPM 12/21/19 03/11/20 History alfuzosin [Uroxatral] 10 mg PO QPM 01/01/20 03/11/20 History memantine [Namenda] 10 mg PO BID 01/01/20 03/11/20 History rosuvastatin [Crestor] 40 mg PO QPM 01/01/20 03/11/20 History cyanocobalamin (vitamin B-12) 1,000 mcg PO QPM 02/23/20 03/11/20 History donepezil [Aricept] 10 mg PO QPM 02/23/20 03/11/20 History finasteride [Proscar] 5 mg PO QPM 02/23/20 03/11/20 History metoprolol succinate 50 mg PO QPM 02/23/20 03/11/20 History omeprazole 20 mg PO QAM 02/23/20 03/11/20 History sertraline 25 mg PO QPM 02/23/20 03/11/20 History fluconazole 150 mg tablet 150 mg PO ONCE 1 Days #1 tab 03/04/20 03/11/20 Rx Patient History Medical History (Updated 03/12/20 @ 08:05 by Oli Machado DO) 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 MONITORED YEARLY. Aneurysm of thoracic aorta MONITORED YEARLY WITH DR. MOORE Anticoagulant long-term use Arthritis Benign localized hyperplasia of prostate with urinary obstruction Bicuspid aortic valve S/P MECHANICAL AVR 2012. ON COUMADIN. CAD (coronary artery disease) NON-OBSTRUCTIVE Cancer BLADDER CANCER (S/P TB FLUSH TREATMENT) Dementia WITH ASSC. BEHAVIORAL/MOOD CHANGES. FOLLOWING WITH [facility] First degree atrioventricular block GERD (gastroesophageal reflux disease) CONTROLLED Hearing deficit Hiatal hernia History of supraventricular tachycardia AVNRT, S/P ABLATION (2008), ASYMPTOMATIC. Hyperlipidemia Hypertension Kidney stones Malignant neoplasm of urinary bladder Mobitz type I Wenckebach atrioventricular block TRANSIENT. Obesity Osteoarthritis Poor historian Vitamin B12 deficiency Surgical History Fusion of spine LUMBAR FUSION AND DISCECTOMY History of anesthesia reaction CONFUSED/AGITATED AND SLOW TO WAKE UP History of arthroscopy LEFT KNEE History of biopsy of bladder History of cardiac cath 2012 History of carpal tunnel release LEFT History of cataract surgery B/L History of cholecystectomy History of colonoscopy History of cystoscopy + KIDNEY STONE EXTRACTION History of esophagogastroduodenoscopy (EGD) History of heart valve replacement AVR (2012) History of herniorrhaphy History of tooth extraction History of vascular surgery S/P LEFT COMMON ILIAC ARTERY ANEURYSM REPAIR Hx of elbow surgery ELBOW SURGERY (ULNAR NERVE) Hx of shoulder surgery LEFT X 2 RT X 1 Hx of transurethral resection of prostate Family History Brother Alcohol abuse Heart disease Crohn's disease Myocardial infarction Sister Anxiety Heart disease Crohn's disease Depression Kidney disease Myocardial infarction Mother Heart disease Myocardial infarction Other Coronary heart disease Denies family history of Ovarian cancer Prostate cancer Breast cancer Colorectal cancer Social History Smoking Status: Never smoker Cigarettes Per Day: QUIT IN 2001; <1 X 20 YEARS; Smoking End Date: QUIT AGE 43 YRS; Second Hand Exposure: No; Do You Dip or Chew Tobacco: Yes (2-3 CANS PER WEEK); Hx Alcohol Use: Yes Alcohol type: beer Hx Substance Use: No Preferred Language: [place] Communication Ability: Effective Visual Impairment: No Limitations Residential Program Worker Required: No Beliefs That Will Affect Care: None Current Living Situation: Spouse Other Information That Helps Us Care for You: No Feels Safe at Home: Yes Safety Concerns: Feels Safe At This Time Assistive Devices: Glasses and Hearing Aid - Bilateral Assistive Devices Comment: NO TEETH Review of Systems Review of Systems: Mild distress and fatigue no headache, blurry or double vision no speech or swallowing issues no chest pain, pressure or palpitations no shortness of breath, cough or wheezes Very minor lower quadrant abdominal pain, no nausea or vomiting, diarrhea or constipation Currently is triple Chan catheter is paula and not erythematous in any way no focal joint pain or swelling no back pain, CVA tenderness or radicular pain no bruising, bleeding or rashes no focal signs of weakness or numbness or altered sensation no complaints of anxiety or depression. Physical Exam Physical Exam: The patient appeared well nourished and normally developed. Vital signs as documented. Head exam is normocephalic atraumatic no scleral icterus Neck is without JVD, thyromegaly, or carotid bruits. Lungs are clear to auscultation, no focal loss of breath sounds Cardiac exam, Rhythm is regular.. No murmurs, rubs or gallops. Abdominal exam reveals normal bowel sounds, soft non tender, no masses Extremities are nonedematous and both pedal pulses are present Neurologic exam is alert and oriented, no focal loss of strength or sensation Skin is without bruises or rashes Psychologically is without concerns for anxiety or depression. Results & Data Results & Data ([facility]) Vital Signs (Past 12 Hours) Vital Signs Temp Pulse Pulse Resp BP BP Pulse Ox 03/12/20 07:54 98.6 F 90 18 102/69 92 03/12/20 07:27 97 H 03/12/20 04:00 99.7 F H 101 H 20 96/65 L 90 03/12/20 01:15 100.0 F H 03/11/20 22:56 100.9 F H 94 H 18 116/75 91 03/11/20 22:20 86 PG Care Time/CCT Total # of Minutes Spent Total Time Spent with Patient: Total time spent is greater than 50% in coordination of care (as documented) at patient's floor/unit and/or counseling patient: Coding Level of Care Code 03632 Inpt Consult Level 4 Diagnoses BPH w urinary obs/LUTS N40.1; N13.8 Status post mechanical aortic valve replacement Z95.2 CAD in [place] artery I25.10 Major neurocognitive disorder F01.50
[2020-03-12] MEDS: FLUCONAZOLE 100 MG/50 ML BAG IV SCH (09:17)
[2020-03-12 09:34] LABS: Eosinophils # (auto) 0.12 K/uL (0-0.5); Eosinophils % (auto) 1.2 %; Hematocrit (blood only) 39.4 % (42-52); Hemoglobin 12.9 g/dL (14.0-18.0); Immature Granulocytes # (auto) 0.02 K/uL (0.00-0.02); Immature Granulocytes % (auto) 0.2 %; Lymphocytes # (auto) 0.27 K/uL (1.2-3.4); Lymphocytes % (auto) 2.8 %; Mean Corpuscular Hemoglobin 30.7 pg (25-34); Mean Corpuscular Hgb Conc 32.7 g/dL (32-36); Mean Corpuscular Volume 93.8 fL (80-100); Mean Platelet Volume 11.2 fL (7.4-10.4); Monocytes # (auto) 0.53 K/uL (0.11-0.59); Monocytes % (auto) 5.4 %; Neutrophils # (auto) 8.82 K/uL (1.4-6.5); Neutrophils % (auto) 90.4 %; Platelet Count 144 K/uL (130-400); RDW Coefficient of Variation 13.3 % (11.5-14.5); RDW Standard Deviation 45.7 fL (36.4-46.3); White Blood Count 9.76 K/uL (4.8-10.8)
[2020-03-12 09:57] LABS: Albumin Level 2.7 gm/dl (3.4-5.0); BUN Creatinine Ratio 13.4 (10-20); Calcium 7.5 mg/dl (8.5-10.1); Creatinine Clr Calc Pharmacy 51.2 ml/min; Est GFR (African American) 57.5; Est GFR (Non-African American) 49.6; Potassium 3.8 mmol/L (3.5-5.1)
[2020-03-12 10:00] LABS: Bilirubin,Total 0.8 mg/dl (0.2-1); Globulin 2.8 gm/dl (2.5-4.0); Total Protein 5.5 gm/dl (6.4-8.2)
--- NOTE | 2020-03-12 10:31 | Anesthesiology Progress Note ---
Date of Service March 12, 2020 Anesthesia Post Procedure Vital Signs Vital Signs: Temp Pulse Pulse Pulse Pulse Resp BP 03/12/20 07:54 37.0 C 90 18 03/12/20 07:27 97 H 03/12/20 04:00 37.6 C H 101 H 20 96/65 L 03/12/20 01:15 37.8 C H 03/11/20 22:56 38.3 C H 94 H 18 03/11/20 22:20 86 03/11/20 19:25 36.5 C 69 18 03/11/20 18:15 36.1 C L 69 18 03/11/20 17:34 60 03/11/20 17:10 35.7 C L 60 18 03/11/20 16:10 35.5 C L 62 18 03/11/20 15:40 36.3 C L 64 18 03/11/20 15:15 63 18 03/11/20 15:00 62 15 03/11/20 14:55 36.1 C L 61 17 03/11/20 14:45 62 16 03/11/20 14:35 67 19 03/11/20 14:27 36.0 C L 69 15 03/11/20 11:19 36.6 C 65 16 111/69 BP Pulse Ox 03/12/20 07:54 102/69 92 03/12/20 07:27 03/12/20 04:00 90 03/12/20 01:15 03/11/20 22:56 116/75 91 03/11/20 22:20 03/11/20 19:25 125/76 96 03/11/20 18:15 107/63 94 03/11/20 17:34 03/11/20 17:10 117/70 95 03/11/20 16:10 134/73 91 03/11/20 15:40 123/78 93 03/11/20 15:15 120/70 95 03/11/20 15:00 122/69 95 03/11/20 14:55 116/68 95 03/11/20 14:45 117/68 96 03/11/20 14:35 120/67 97 03/11/20 14:27 102/65 94 03/11/20 11:19 94 Pain Intensity Groin: Pain Intensity: 6 Notes Mental Status: alert / awake / arousable and participated in evaluation Patient Amnestic to Procedure: Yes Nausea / Vomiting: adequately controlled Pain: adequately controlled Airway Patency, RR, SpO2: stable & adequate BP & HR: stable & adequate Hydration State: stable & adequate Anesthetic Complications: no major complications apparent and Pt Satisfied with anesthetic care
[2020-03-12] MEDS: PIPERACILLIN/TAZOBACTAM 3.375 GM in DEXTROSE 5% 100 ML IV SCH ×2 (13:24→22:18)
[2020-03-12] MEDS: DONEPEZIL HCL 10 MG TAB PO SCH (21:45)
[2020-03-12] MEDS: ROSUVASTATIN CALCIUM 20 MG TAB PO SCH (21:46)
[2020-03-12] MEDS: CYANOCOBALAMIN 500 MCG TABLET (VITAMIN B-12) PO SCH (21:47)
[2020-03-12] MEDS: SERTRALINE HCL 50 MG TABLET PO SCH (21:47)
[2020-03-12] MEDS: ALFUZOSIN HCL 10 MG TAB PO SCH (21:47)
[2020-03-12] MEDS: METOPROLOL SUCC 50MG EXT REL TAB PO SCH (22:18)
[2020-03-13] MEDS: SODIUM CHLORIDE 0.9% 1000ML 1,000 ML IV SCH ×2 (01:09→10:57)
[2020-03-13] MEDS: PIPERACILLIN/TAZOBACTAM 3.375 GM in DEXTROSE 5% 100 ML IV SCH (05:29)
[2020-03-13 08:27] LABS: Eosinophils % (auto) 4.7 %; Hematocrit (blood only) 40.1 % (42-52); Hemoglobin 13.1 g/dL (14.0-18.0); Immature Granulocytes # (auto) 0.01 K/uL (0.00-0.02); Immature Granulocytes % (auto) 0.2 %; Lymphocytes # (auto) 0.57 K/uL (1.2-3.4); Mean Corpuscular Hemoglobin 30.5 pg (25-34); Mean Corpuscular Hgb Conc 32.7 g/dL (32-36); Mean Corpuscular Volume 93.5 fL (80-100); Mean Platelet Volume 11.2 fL (7.4-10.4); Monocytes # (auto) 0.49 K/uL (0.11-0.59); Monocytes % (auto) 7.7 %; Neutrophils # (auto) 4.97 K/uL (1.4-6.5); Neutrophils % (auto) 78.4 %; Platelet Count 129 K/uL (130-400); RDW Coefficient of Variation 13.2 % (11.5-14.5); RDW Standard Deviation 44.8 fL (36.4-46.3); Red Blood Count 4.29 M/uL (4.7-6.1); White Blood Count 6.34 K/uL (4.8-10.8)
[2020-03-13 08:43] LABS: BUN Creatinine Ratio 11.4 (10-20); Calcium 8.1 mg/dl (8.5-10.1); Creatinine Clr Calc Pharmacy 59.5 ml/min; Est GFR (Non-African American) 59.5; Potassium 4.1 mmol/L (3.5-5.1)
[2020-03-13] MEDS: PANTOprazole 40 MG TAB PO SCH (08:55)
[2020-03-13] MEDS: MEMANTINE HCL 10 MG TAB PO SCH (08:55)
--- NOTE | 2020-03-13 08:55 | Urology Progress Note ---
Date of Service March 13, 2020 Assessment & Plan (1) BPH w urinary obs/LUTS: (2) S/P TURP (status post transurethral resection of prostate): 69 yo M POD #2 s/p TURP with Dr. Machado. - Doing well, afebrile overnight - Chan catheter draining clear yellow urine, CBI clamped yesterday @1715 - Will d/c CBI, maintain Chan catheter - Patient tolerating diet, ambulating without difficulty - Pt feels ready for discharge today - Lab work reviewed - creatinine and WBC improved today - Plan to transition to PO Diflucan and PO antibiotics upon discharge per Dr. Machado - Expected clinical course reviewed, all questions answered - Plan for d/c later today with Chan catheter if he continues to progress as expected and if medically stable per Hospital team. - Per hospital team, pt okay for discharge today, pt to resume Warfarin today. Admission and Anticipated Discharge Date Admission Date: March 11, 2020 Subjective 69 yo M POD #2 s/p TURP with Dr. Machado. Pt seen and examined at bedside this AM. Awake and sitting up in bed. Appears comfortable, no acute distress. No issues overnight. Denies abdominal, suprapubic or flank pain. Tolerating Chan catheter without bother. CBI clamped yesterday @1715. Chan catheter intact, patent, draining clear yellow urine. Tolerating diet, no nausea or vomiting. Afebrile overnight. Reports ambulating without difficulty. Feels ready for discharge today. Lab work: Creatinine 1.23, WBC 6.34, Hgb 13.1 No additional concerns today. Review of Systems Constitutional: as per Subjective / HPI Gastrointestinal: as per Subjective / HPI Genitourinary: + as per Subjective / HPI Physical Exam Constitutional: well developed and well nourished; no acute distress and not ill appearing Respiratory: normal respiratory effort and able to speak in complete sentences; no respiratory distress and no labored breathing Cardiovascular: Extremities: no pedal edema Gastrointestinal (Abdomen): Inspection/Auscultation: abdomen normal to inspection; abdomen not distended Percussion/Palpation: abdomen soft; abdomen nontender Musculoskeletal: Head/Neck/Chest: normocephalic and head atraumatic Extremities: extremities normal to inspection Skin: warm and dry Neurologic: moves all extremities and awake Psychiatric: Orientation: alert and oriented x 3 Genitourinary: Chan catheter intact, patent, draining clear yellow urine. CBI clamped. Results & Data ([facility]) Vital Signs (Past 12 Hours) Vital Signs Temp Pulse Pulse Resp BP BP Pulse Ox 03/13/20 07:43 36.8 C 71 18 119/64 93 03/13/20 07:04 76 03/13/20 03:10 37 C 80 17 127/67 91 03/13/20 00:00 37.2 C 93 H 97 H 19 112/57 L 90 03/12/20 22:30 36.8 C 62 20 149/62 H 93 PG Care Time/CCT Total # of Minutes Spent Total Time Spent with Patient: Total time spent is greater than 50% in coordination of care (as documented) at patient's floor/unit and/or counseling patient: Coding Level of Care Code 06761 Subseq Hosp Care Lvl 2 Diagnoses BPH w urinary obs/LUTS N40.1; N13.8 S/P TURP (status post transurethral resection of prostate) Z90.79
[2020-03-13] MEDS: FLUCONAZOLE 100 MG/50 ML BAG IV SCH (08:56)
[2020-03-13] MEDS: DOCUSATE SODIUM 100 MG CAP PO SCH (08:56)
--- NOTE | 2020-03-15 07:32 | Discharge Summary ---
Date of Service March 15, 2020 Admission HPI Per Admitting Provider See H&P Admission Exam Per Admitting Provider See H&P Principal Diagnosis BPH with obstruction Discharge Exam General: Alert in no acute distress. HEENT: Normocephalic Atraumatic. Inspection normal. Psychologic: Normal affect. Skin: [place] and Dry. No rashes or visible lesions. Abdomen: Soft Non-distended. No rebound or guarding. Discharge Data Allergies Allergy/AdvReac Type Severity Reaction Status Date / Time adhesive Allergy Mild RED SKIN Verified 03/11/20 11:08 ciprofloxacin Allergy Mild RASH Verified 03/11/20 11:08 doxycycline Allergy Mild GI UPSET Verified 03/11/20 11:08 Consultations 03/12/20 08:08 Consult Hospitalist Routine Procedures Performed Operation Date: 03/11/20 12:35 Actual Procedures p Transurethral Resection of Prostate, (Not Applicable) - Oli Machado DO s Left stent(Left) - Oli Machado DO s Cystoscopy, Bilateral retrograde pyelogram, Left ureteroscopy, Dilation, (Bilateral) - Oli Machado DO Ordered Studies 03/11/20 13:00 FL retrograde includes kub Routine Hospital Course (1) BPH w urinary obs/LUTS: Postop day 1 patient status post TURP with left stent placement and dilation of ureter. Patient with 38.3 temp overnight. Preop culture had a low count of fungus likely associated with catheter as well as history of pansensitive E. coli over the summer. Patient has been kept on Ancef. Had a temperature overnight with low-grade temperatures in the morning. Patient is comfortable and resting without major issue or problems. His blood pressure is slightly low. Is not showing any other signs of systemic inflammatory response. No other major problems or issues. Plan is to escalate antibiotics with pseudomonal coverage. We will change to Zosyn. We will also add antifungal. Patient is otherwise tolerating catheter. We will plan to monitor for the day. Will reassess later today. We will continue to titrate CBI to clear with plans to try to clamp later today. We will continue to monitor. Will consult medicine for assistance in management of multiple medical and cardiac issues during admission. (2) S/P TURP (status post transurethral resection of prostate): 69 yo M POD #2 s/p TURP with Dr. Machado. - Doing well, afebrile overnight - Chan catheter draining clear yellow urine, CBI clamped yesterday @1715 - Will d/c CBI, maintain Chan catheter - Patient tolerating diet, ambulating without difficulty - Pt feels ready for discharge today - Lab work reviewed - creatinine and WBC improved today - Plan to transition to PO Diflucan and PO antibiotics upon discharge per Dr. Machado - Expected clinical course reviewed, all questions answered - Plan for d/c later today with Chan catheter if he continues to progress as expected and if medically stable per Hospital team. - Per hospital team, pt okay for discharge today, pt to resume Warfarin today. Total Time Total Time Spent Total Time Spent (In Minutes): 10 minutes Total Time Includes: Examination of the Patient, Discharge Planning, Medication Reconciliation and Communication With Other Providers Discharge Plan Discharge Items Patient Disposition: Home - Self-Care Reason For Visit: Gross Hematuria Discharge Diagnosis: Gross hematuria Activity: Per Instructions section Lifting: No more than 25 pounds Bathing Comment: Okay to shower in 1 day, no tub bath or soaking Sexual Activity: Wait until after follow-up appointment Exercise/Sports: Wait until after follow-up appointment Driving/Machine Use: No driving while taking prescription pain medication Non-emergency contact: Urologist Call non-emergency contact if: your symptoms worsen, your pain is not controlled, you have a fever and your temperature is above 101 Follow-up/Referrals: Raine Garcia PA-C [Primary Care Provider] - Oli Machado DO [Physician] - 03/20/20 2:30 pm Diet: Regular Addtl Attending Provider Instructions: Please take all medications as prescribed and keep all follow-ups as scheduled. Please call our office at [phone] with any questions, concerns or need to reschedule appointments for any reason. We are happy to assist you. Resume Warfarin today Tips for your recovery at home: Dont be alarmed by brownish or reddish blood or clots in your urine. This is a result of the procedure. This may occur off and on for weeks to months after the procedure but should continue to improve. Drink plenty of fluids during the day (enough to keep your urine very light colored). This will help keep a healthy flow of urine. Do not lift >25 lbs until your followup Avoid constipation. Please use a stool softener (Colace) for the first two weeks after your procedure Be sure to finish the antibiotics as prescribed. If you go home with a catheter, please wash tubing where it enters your body twice daily with mild soap (Dove or Dial). Once your catheter is removed, expect some blood in your urine and some burning when you urinate. You should have an appointment to have this removed, if you do not please call our office to arrange. Pending Studies at Discharge: Yes Stand-Alone Forms: My [facility], Smoking Cessation Medications and DC Order Prescriptions: New docusate sodium [Colace] 100 mg capsule 100 mg PO BID Qty: 60 RF: 0 oxycodone-acetaminophen [Percocet] 5-325 mg tablet 1 tab PO TID PRN (Reason: pain) Qty: 7 RF: 0 nitrofurantoin monohyd/m-cryst [Macrobid] 100 mg capsule 100 mg PO BID 10 Days Qty: 20 RF: 0 cephalexin [Keflex] 500 mg capsule 500 mg PO BID 7 Days Qty: 14 RF: 0 fluconazole [Diflucan] 100 mg tablet 100 mg PO DAILY 5 Days Qty: 5 RF: 0 Continued warfarin 5 mg tablet 5 mg PO DAILY Qty: 90 RF: 3 aspirin 81 mg tablet,delayed release (DR/EC) 81 mg PO QPM RF: 0 rosuvastatin [Crestor] 40 mg tablet 40 mg PO QPM RF: 0 alfuzosin [Uroxatral] 10 mg tablet extended release 24 hr 10 mg PO QPM RF: 0 memantine [Namenda] 10 mg tablet 10 mg PO BID RF: 0 metoprolol succinate 50 mg tablet extended release 24 hr 50 mg PO QPM RF: 0 donepezil [Aricept] 10 mg tablet 10 mg PO QPM RF: 0 cyanocobalamin (vitamin B-12) 1,000 mcg tablet 1,000 mcg PO QPM RF: 0 sertraline 25 mg tablet 25 mg PO QPM RF: 0 finasteride [Proscar] 5 mg tablet 5 mg PO QPM RF: 0 omeprazole 20 mg tablet,delayed release (DR/EC) 20 mg PO QAM RF: 0 Discontinued fluconazole 150 mg tablet 150 mg PO ONCE 1 Days Qty: 1 RF: 0 Discharge Orders: Discharge Order (Routine); Ordered 03/13/20 Ordered By: Zonia Barboza Admission Data Admit Date/Time: 03/11/20 12:43 Attending Provider: Oli Machado Admit Provider: Oli Machado Primary Care Provider: Raine Garcia Other Providers: Amaury Mayo ; Kristy oHffmann ; Roc Silva ; Kosta Villagran ; Makenzie Garcia ; Maximiliano Hancock ; Odilon Kunz ; Cori Trinidad ; Elle Pozo ; Karen Fuller ; Michael Siegel ; Raine Silva ; Augustina Henson ; Hector Mcnair ; Radha Robins ; Nino Mueller ; Carson Lozoya ; Lucia Barboza ; Savana Ba ; Nick Bautista ; Roc Almeida ; Herbie Clark ; Kenia Snyder ; Nisha Snyder ; Roni Jorgensen ; Lenard Blackwell ; Jose Antonio Green ; Homero Garcia. ; Bhavesh Quintana ; [facility] Other Interventions: Discharge Summary Assessment (RN) Last Done: 03/13/20 10:24 Coding Level of Care Code D/C Day Management <30 mins Diagnoses BPH w urinary obs/LUTS N40.1; N13.8 S/P TURP (status post transurethral resection of prostate) Z90.79
== END 2020-03-13 12:03 | disposition home or self-care (01) ==
LOC: ASU 10:50 → 2N 10:50